=== PATIENT | male | born 1945 | race Caucasian/White ===

== ENCOUNTER 2018-06-14 18:57 | Emergency (ER) | payer MEDICARE ==
--- NOTE | 2018-06-14 19:52 | ERPHSYRPT ---
- History of Present Illness Time Seen by Provider: 06/14/18 19:44 Source: patient, family, EMS Exam Limitations: no limitations Patient Subjective Stated Complaint: Cough/congestion Triage Nursing Assessment: Patient ambulated into ED and transferred self to bed. Patient Alert with intermittent confusion. DX of alzheimers. at bedside answering questions. Patient has had a non-productive cough that has gotten worse since Tuesday. Patient's lungs noted to be diminished throughout with wheeze to left uppper lobe. O2 97% on room air. Patient denies pain or discomfort. Patient has been afebrile. Physician History: Patient is a 73-year-old male with a history of Alzheimer's dementia accompanied by his complaining that he has a worsening cough that is nonproductive for the last 3 days. After supper tonight, he told his he wanted to go to the ER to be evaluated and get antibiotics. He denies fever or chills, although his said he was shaking after supper. He denies shortness of breath. He denies any pain. His past medical history is significant for renal carcinoma with subsequent nephrectomy. The other kidney was diagnosed with renal carcinoma and he has declined treatment. His like a chest x-ray for him and antibiotics. Timing/Duration: day(s) (3), gradual onset, worse Cough Quality/Degree: moderate, dry cough Possible Cause: occasional episodes Modifying Factors: Improves With: coughing Associated Symptoms: cough, No shortness of breath, No wheezing Allergies/Adverse Reactions: naproxen [From Naprosyn] Adverse Reaction (Mild, Verified 06/14/18 19:33) Hx Influenza Vaccination/Date Given: No Hx Pneumococcal Vaccination/Date Given: No Immunizations Up to Date: Yes - Review of Systems Constitutional: No Fever, No Chills Eyes: No Symptoms Ears, Nose, & Throat: No Symptoms Respiratory: Cough Cardiac: No Chest Pain, No Edema, No Syncope Abdominal/Gastrointestinal: No Abdominal Pain, No Nausea, No Vomiting, No Diarrhea Genitourinary Symptoms: No Dysuria Musculoskeletal: No Back Pain, No Neck Pain Skin: No Rash Neurological: No Dizziness, No Focal Weakness, No Sensory Changes Psychological: No Symptoms Endocrine: No Symptoms Hematologic/Lymphatic: No Symptoms Immunological/Allergic: No Symptoms All Other Systems: Reviewed and Negative - Past Medical History Pertinent Past Medical History: Yes Neurological History: Alzheimer's Disease ENT History: No Pertinent History Cardiac History: High Cholesterol, Hypertension Respiratory History: No Pertinent History Endocrine Medical History: Diabetes Type II, Hypothyroidism Musculoskeletal History: No Pertinent History GI Medical History: No Pertinent History History: Kidney Cancer Psycho-Social History: No Pertinent History Male Reproductive Disorders: No Pertinent History Other Medical History: Kidney cancer 1998 - Past Surgical History Past Surgical History: Yes Gastrointestinal: Appendectomy, Cholecystectomy Genitourinary: Kidney Surgery Male Surgical History: Vasectomy Other Surgical History: nasal, tonsils, - Social History Smoking Status: Never smoker Exposure to second hand smoke: No Drug Use: none Patient Lives Alone: No - Nursing Vital Signs Nursing Vital Signs: Initial Vital Signs Temperature 99.8 F 06/14/18 19:23 Pulse Rate 107 H 06/14/18 19:23 Respiratory Rate 16 06/14/18 19:23 Blood Pressure 149/74 06/14/18 19:23 O2 Sat by Pulse Oximetry 97 06/14/18 19:23 Pain Scale Pain Intensity 0 - Physical Exam General Appearance: no apparent distress, alert Eye Exam: PERRL/EOMI, eyes nml inspection Ears, Nose, Throat Exam: normal ENT inspection, TMs normal, pharynx normal, moist mucous membranes Neck Exam: normal inspection, non-tender, supple, full range of motion Respiratory Exam: normal breath sounds, lungs clear, No respiratory distress Cardiovascular Exam: regular rate/rhythm, normal heart sounds Gastrointestinal/Abdomen Exam: soft, No tenderness Rectal Exam: not done Back Exam: normal inspection, No CVA tenderness, No vertebral tenderness Extremity Exam: normal inspection, normal range of motion Neurologic Exam: alert, oriented x 3, cooperative, normal mood/affect, sensation nml, No motor deficits Skin Exam: normal color, warm, dry, No rash Lymphatic Exam: No adenopathy SpO2 Interpretation: normal SpO2: 97 O2 Delivery: Room Air - Radiology Exams Chest X-ray Interpretation: Interpreted by me, Negative (stable 2V chest, comp 2V chest 07/15/15.) Ordered Tests: Active Orders 24 hr Category Date Time Status CHEST 2 VIEWS (PA AND LAT) Stat Exams 06/14/18 19:55 Ordered Peak Expiratory Flow Rate ONCE RT 06/14/18 20:07 Active Respiratory Nebulizer STAT RT 06/14/18 19:56 Active Respiratory Therapy Assessment DAILY RT 02/06/19 20:06 Active Medication Summary Discontinued Medications Generic Name Dose Route Start Last Admin Trade Name Jose PRN Reason Stop Dose Admin Albuterol Sulfate 2.5 mg 06/14/18 19:56 06/14/18 20:19 Proventil 2.5 Mg/3 Ml Neb IH 06/14/18 19:57 2.5 mg STAT ONE Administration Albuterol Sulfate Confirm 06/14/18 20:18 Proventil 2.5 Mg/3 Ml Neb Administered 06/14/18 20:19 Dose 2.5 mg IH .STK-MED ONE - Progress Progress: improved Air Movement: good Blood Culture(s) Obtained: No Antibiotics given: Yes Counseled pt/family regarding: diagnosis, rad results - Departure Time of Disposition: 20:29 Departure Disposition: Home Clinical Impression: Bronchitis Condition: Stable Critical Care Time: No Referrals: JESSI WADDELL MD [Primary Care Provider] - Additional Instructions: You have bronchitis. The x-ray did not show any signs of pneumonia at this time. You were given an albuterol breathing treatment. You were given Rocephin 1 g IM in the ER. Tomorrow continue with azithromycin 500 mg on day one, followed by 250 mg daily for days 2 through 5. Take Tylenol 1000 mg every 6-8 hours as needed. Follow-up with your primary medical doctor as needed. Prescriptions: Azithromycin 250 mg [Zithromax 250 MG TABLET] 250 mg PO ZPACK #6 tablet
[2018-06-14] MEDS ORDERED: PROVENTIL 2.5 MG/3 ML NEB IH ONE ×2 (19:56→20:18)
[2018-06-14] MEDS ORDERED: Rocephin 1000 MG INJ IM ONE (20:31)
[2018-06-14] MEDS ORDERED: XYLOCAINE 1% HCL 20 ML MDV ONE (20:37)
[2018-06-14] MEDS ORDERED: Rocephin 1000 MG INJ ONE (20:37)
[2018-06-14 21:07] VITALS: BP 110/87; PULSE 71; O2SAT 96
--- NOTE | 2018-06-15 08:35 | XRAY ---
Indication: Cough. Comparison: July 15, 2015. PA/lateral chest remains clear. Heart and mediastinal structures within normal limits. Bony thorax intact again with mild osteopenia and degenerative changes. Impression: Stable nonacute chest with chronic features.
== END 2018-06-14 21:08 | disposition home or self-care (01) ==
LOC: ED 18:57
DX: J40 Bronchitis, not specified as acute or chronic (principal); G30.9 Alzheimer's disease, unspecified; F02.80 Dementia in other diseases classified elsewhere, unspecified severity, without behavioral disturbance, psychotic disturbance, mood disturbance, and anxiety; E78.00 Pure hypercholesterolemia, unspecified; I10 Essential (primary) hypertension; E11.9 Type 2 diabetes mellitus without complications; E03.9 Hypothyroidism, unspecified; Z85.528 Personal history of other malignant neoplasm of kidney
CPT/HCPCS: 71046; 94150; 94640; 96372; 99284; J0696; J7609; A9270-GY

== ENCOUNTER 2018-07-20 19:39 | Observation (INO) | payer MEDICARE ==
[2018-07-20] MEDS ORDERED: Sodium Chloride 0.9% 1000 ML 1,000 ML IV STA (20:18)
[2018-07-20 20:41] LABS: Granulocyte Absolute (ANC) 5.49 (1.4-6.9); Hematocrit 42.9 % (42-50); Hemoglobin 14.7 gm/dl (12.5-18.0); Mean Corpuscular Hemoglobin 29.8 pg (26-32); Mean Corpuscular Hgb Concent. 34.3 g/dl (32-36); Mean Platelet Volume 10.6 fl (6-9.5); Platelet Count 295 K/mm3 (150-450); Red Blood Count 4.93 M/mm3 (4.1-5.6); Red Cell Distribution Width 15.1 % (11.5-14.0); White Blood Count 8.4 K/mm3 (4.0-10.5)
[2018-07-20] MEDS ORDERED: Sodium Chloride 0.9% 1000 ML 1,000 ML ONE ×2 (20:47→23:47)
[2018-07-20 20:55] LABS: ALBUMIN 4.3 g/dL (3.5-5.0); ANION GAP 17.2 MEQ/L (5-15); Calcium 9.2 mg/dL (8.4-10.2); Creatinine 1 1.29 mg/dL (0.66-1.25); Potassium 4.3 mmol/L (3.5-5.1); Total Protein 7.9 g/dL (6.3-8.2)
[2018-07-20 21:16] LABS: INFLUENZA A POSITIVE (NEGATIVE); INFLUENZA B NEGATIVE (NEGATIVE); RESPIRATORY SYNCTIAL VIRUS NEGATIVE (Negative)
[2018-07-20] MEDS ORDERED: Tamiflu 75MG Capsule PO ONE ×2 (21:17→21:32)
[2018-07-20] MEDS ORDERED: Zithromax 500 MG/ 250 ML NaCl Premix 500 MG/250 ML IVPB IV ONE ×2 (21:39→22:05)
[2018-07-20] MEDS ORDERED: DUONEB 0.5-3 MG/3 ml Neb IH ONE ×2 (21:40→21:45)
[2018-07-20 21:43] LABS: ATYPICAL LYMPHS 5 %; BAND 9 % (0.0-2.0); Basophil 1 % (0.0-1.0); Lymphocytes 9 % (24-44); Monocyte 15 % (0.0-12.0); Neutrophils 61 % (36.-66.); Platelet Estimate NORMAL (NORMAL); Total Cells Counted 100
--- NOTE | 2018-07-20 22:02 | ERPHSYRPT ---
- History of Present Illness Source: patient, family Exam Limitations: clinical condition Patient Subjective Stated Complaint: states that pt has been increasingly weak today iwth copugh since yesterday Triage Nursing Assessment: pt awake and alert, answers some questions- pt with hx of alzheimers. oriented to person and situation. skin warm and dry. pt transfer from wheelchair to stretcher with assist of 1. respirations nonlbored with lungs cta. Physician History: Pt with dementia, presented to the ED with his . Per , pt is usually ambulating well, and is able to answer some questions. Today the pt was so weak , he was not able to get out of bed, and had some fever. states, pt has a cough as well. Pt did not get the flu vaccine this year. Pt denies N/V/D or abdominal pain. He denies SOB. He can't give clear history. Timing/Duration: today Activities at Onset: none Severity of Dyspnea-Max: mild Possible Cause: no prior episodes Modifying Factors: Improves With: lying down Associated Symptoms: denies symptoms, cough, fever, wheezing Allergies/Adverse Reactions: naproxen [From Naprosyn] Adverse Reaction (Mild, Verified 07/20/18 19:55) Home Medications: Cyanocobalamin (Vitamin B-12) [Vitamin B12] 1,000 mcg PO DAILY 07/20/18 [History ] Donepezil HCl 10 mg [Aricept 10 MG] 10 mg PO DAILY 07/20/18 [History] Insulin Detemir [Levemir] 60 unit SQ BID 07/20/18 [History] Insulin Lispro [Humalog Kwikpen] 40 unit SQ BID 07/20/18 [History] Irbesartan/Hydrochlorothiazide [Irbesartan-Hctz 150-12.5 mg Tb] 1 each PO DAILY 07/20/18 [History] Levothyroxine Sodium 75 Mcg [Synthroid 75 Mcg] 75 mcg PO DAILY 07/20/18 [ History] Medroxyprogesterone Acet [Depo-Provera] 150 mg IM UD 07/20/18 [History] Memantine HCl 10 mg PO BID 07/20/18 [History] Potassium Chloride [K-Dur] 20 meq PO TID 07/20/18 [History] Vit B12/Levomefolate/Vit B6/B2 [Cerefolin Tablet] 1 each PO DAILY 07/20/18 [ History] Vitamin E 400 unit PO DAILY 07/20/18 [History] Hx Tetanus, Diphtheria Vaccination/Date Given: No Hx Influenza Vaccination/Date Given: No Hx Pneumococcal Vaccination/Date Given: No Immunizations Up to Date: No - Review of Systems Constitutional: Lethargy, Malaise Eyes: No Symptoms Ears, Nose, & Throat: No Symptoms Respiratory: Cough, Wheezing Cardiac: No Chest Pain, No Edema, No Syncope Abdominal/Gastrointestinal: No Abdominal Pain, No Nausea, No Vomiting, No Diarrhea Genitourinary Symptoms: No Dysuria Musculoskeletal: No Back Pain, No Neck Pain Neurological: No Dizziness, No Focal Weakness, No Sensory Changes - Past Medical History Pertinent Past Medical History: Yes Neurological History: Alzheimer's Disease ENT History: No Pertinent History Cardiac History: High Cholesterol, Hypertension Respiratory History: No Pertinent History Endocrine Medical History: Diabetes Type II, Hypothyroidism Musculoskeletal History: No Pertinent History GI Medical History: No Pertinent History History: Kidney Cancer Psycho-Social History: No Pertinent History Male Reproductive Disorders: No Pertinent History Other Medical History: Kidney cancer 1998 - Past Surgical History Past Surgical History: Yes Gastrointestinal: Appendectomy, Cholecystectomy Genitourinary: Kidney Surgery Male Surgical History: Vasectomy Other Surgical History: nasal, tonsils, - Social History Smoking Status: Never smoker Exposure to second hand smoke: No Drug Use: none Patient Lives Alone: No - Nursing Vital Signs Nursing Vital Signs: Initial Vital Signs Temperature 101 F 07/20/18 19:47 Pulse Rate 109 H 07/20/18 19:47 Respiratory Rate 18 07/20/18 19:47 Blood Pressure 115/77 07/20/18 19:47 O2 Sat by Pulse Oximetry 96 07/20/18 19:47 - Physical Exam General Appearance: mild distress Neck Exam: normal inspection, supple Respiratory Exam: wheezing Cardiovascular/Chest Exam: normal heart sounds, regular rate/rhythm Abdominal/Gastrointestinal Exam: soft, No tenderness, No distention, No mass Extremity Exam: non-tender, normal range of motion, normal inspection, no calf tenderness, no pedal edema Neurologic Exam: 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, 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, sensation nml, No motor deficits SpO2 Interpretation: borderline oxygenation SpO2: 96 - Course Nursing assessment & vital signs reviewed: Yes - Radiology Exams Chest X-ray Interpretation: Interpreted by me (RLL PNA.) Ordered Tests: Active Orders 24 hr Category Date Time Status EKG-ER Only STAT Care 07/20/18 20:18 Active IV Insertion STAT Care 07/20/18 20:18 Active CHEST 2 VIEWS (PA AND LAT) Stat Exams 07/20/18 20:21 Taken CBC W DIFF Stat Lab 07/20/18 20:35 Completed CMP Stat Lab 07/20/18 20:35 Completed Lactic Acid Stat Lab 07/20/18 20:27 Completed Manual Differential NC Stat Lab 07/20/18 20:35 Completed TROPONIN Q3H Lab 07/20/18 20:35 Completed TROPONIN Q3H Lab 07/20/18 23:30 Ordered Urinalysis with Microscopy Stat Lab 07/20/18 21:37 Ordered Respiratory Nebulizer STAT RT 07/20/18 21:41 Completed Medication Summary Generic Name Dose Route Start Last Admin Trade Name Freq PRN Reason Stop Dose Admin Azithromycin 500 mg in 250 mls @ 250 mls/hr 07/20/18 21:39 Zithromax 500 Mg/ 250 Ml Nacl Premix IV 07/20/18 22:38 STAT ONE Ceftriaxone Sodium/Dextrose 1 g in 50 mls @ 100 mls/hr 07/21/18 10:00 Rocephin 1 Gm-D5w 50 Ml Bag IV 08/20/18 09:59 [id number] JUSTIN Discontinued Medications Generic Name Dose Route Start Last Admin Trade Name Freq PRN Reason Stop Dose Admin Albuterol/Ipratropium 3 ml 07/20/18 21:40 07/20/18 21:47 Duoneb 0.5-3 Mg/3 Ml Neb IH 07/20/18 21:41 3 ml STAT ONE Administration Albuterol/Ipratropium Confirm 07/20/18 21:45 Duoneb 0.5-3 Mg/3 Ml Neb Administered 07/20/18 21:46 Dose 3 ml IH .STK-MED ONE Sodium Chloride 1,000 mls @ 999 mls/hr 07/20/18 20:18 07/20/18 20:49 Sodium Chloride 0.9% 1000 Ml IV 07/20/18 21:18 999 mls/hr .Q1H1M STA Administration Sodium Chloride Confirm 07/20/18 20:47 Sodium Chloride 0.9% 1000 Ml Administered 07/20/18 20:48 Dose 1,000 mls @ ud .ROUTE .K-MED ONE Oseltamivir Phosphate 75 mg 07/20/18 21:17 07/20/18 21:33 Tamiflu 75mg Capsule PO 07/20/18 21:18 75 mg STAT ONE Administration Oseltamivir Phosphate Confirm 07/20/18 21:32 Tamiflu 75mg Capsule Administered 07/20/18 21:33 Dose 75 mg PO .[facility] ONE Lab/Rad Data: Laboratory Result Diagrams 07/20/18 20:35 07/20/18 20:35 Laboratory Results 07/20/18 07/20/18 07/20/18 Range/Units 20:36 20:35 20:35 WBC (4.0-10.5) K/mm3 RBC (4.1-5.6) M/mm3 Hgb (12.5-18.0) gm/dl Hct (42-50) % MCV (78-100) fl MCH (26-32) pg MCHC (32-36) g/dl RDW (11.5-14.0) % Plt Count (150-450) K/mm3 MPV (6-9.5) fl Absolute Granulocytes (1.4-6.9) Segmented Neutrophils (36.-66.) % Band Neutrophils (0.0-2.0) % Lymphocytes (Manual) (24-44) % Monocytes (Manual) (0.0-12.0) % Basophils (Manual) (0.0-1.0) % Atypical Lymphocytes % Platelet Estimate (NORMAL) RBC Morphology Sodium 134 L (137-145) mmol/L Potassium 4.3 (3.5-5.1) mmol/L Chloride 103 (98-107) mmol/L Carbon Dioxide 19 L (22-30) mmol/L Anion Gap 17.2 H (5-15) MEQ/L BUN 23 H (9-20) mg/dL Creatinine 1.29 H (0.66-1.25) mg/dL Estimated GFR 58.2 ML/MIN Glucose 192 H (74-106) mg/dL Lactic Acid (0.4-2.0) Calcium 9.2 (8.4-10.2) mg/dL Total Bilirubin 1.00 (0.2-1.3) mg/dL AST 32 (17-59) U/L ALT 15 (0-50) U/L Alkaline Phosphatase 81 (38-126) U/L Troponin I < 0.012 (0.000-0.034) ng/mL Serum Total Protein 7.9 (6.3-8.2) g/dL Albumin 4.3 (3.5-5.0) g/dL Influenza Type A Ag POSITIVE (NEGATIVE) Influenza Type B Ag NEGATIVE (NEGATIVE) RSV (PCR) NEGATIVE (Negative) 07/20/18 07/20/18 Range/Units 20:35 20:27 WBC 8.4 (4.0-10.5) K/mm3 RBC 4.93 (4.1-5.6) M/mm3 Hgb 14.7 (12.5-18.0) gm/dl Hct 42.9 (42-50) % MCV 87.0 (78-100) fl MCH 29.8 (26-32) pg MCHC 34.3 (32-36) g/dl RDW 15.1 H (11.5-14.0) % Plt Count 295 (150-450) K/mm3 MPV 10.6 H (6-9.5) fl Absolute Granulocytes 5.49 (1.4-6.9) Segmented Neutrophils 61 (36.-66.) % Band Neutrophils 9 H (0.0-2.0) % Lymphocytes (Manual) 9 L (24-44) % Monocytes (Manual) 15 H (0.0-12.0) % Basophils (Manual) 1 (0.0-1.0) % Atypical Lymphocytes 5 % Platelet Estimate NORMAL (NORMAL) RBC Morphology NORMAL Sodium (137-145) mmol/L Potassium (3.5-5.1) mmol/L Chloride (98-107) mmol/L Carbon Dioxide (22-30) mmol/L Anion Gap (5-15) MEQ/L BUN (9-20) mg/dL Creatinine (0.66-1.25) mg/dL Estimated GFR ML/MIN Glucose (74-106) mg/dL Lactic Acid 1.6 (0.4-2.0) Calcium (8.4-10.2) mg/dL Total Bilirubin (0.2-1.3) mg/dL AST (17-59) U/L ALT (0-50) U/L Alkaline Phosphatase (38-126) U/L Troponin I (0.000-0.034) ng/mL Serum Total Protein (6.3-8.2) g/dL Albumin (3.5-5.0) g/dL Influenza Type A Ag (NEGATIVE) Influenza Type B Ag (NEGATIVE) RSV (PCR) (Negative) - Progress Progress: improved Air Movement: fair Progress Note: 07/20/18 22:10 Pt is a 73 y/o male with weakness, lethargy and wheeze. He had a flu positive tesr and CXR with RLL PNA. Pt also has ssome KEHINDE. He did get some IVF, Tamiflu , Duo nebs and Azithromycin with Ceftriaxone. I discussed the pt with Dr Waddell that accepted him for admission. Blood Culture(s) Obtained: No Antibiotics given: Yes Discussed with .: Gerald Counseled pt/family regarding: lab results, diagnosis, rad results - Departure Time of Disposition: 22:12 Departure Disposition: Observation Clinical Impression: Influenza A Condition: Stable Critical Care Time: No Referrals: JESSI WADDELL MD [Primary Care Provider] -
[2018-07-20 22:22] LABS: Appearance CLEAR (CLEAR); Bilirubin NEGATIVE (NEGATIVE); Blood NEGATIVE Ery/ul (0-5); Glucose 50 mg/dL (NEGATIVE); Ketones TRACE (NEGATIVE); Leukocyte Esterase NEGATIVE (NEGATIVE); Mucus SLIGHT /HPF (NEGATIVE); Nitrite NEGATIVE (NEGATIVE); Protein,Urine Dip 100 (Negative); Urobilinogen 2 mg/dL (0-1)
[2018-07-20] MEDS ORDERED: DUONEB 0.5-3 MG/3 ml Neb IH SCH (23:00)
[2018-07-20] MEDS ORDERED: Zithromax 500 MG/ 250 ML NaCl Premix 0 MG/0 ML IVPB IV ONE (23:03)
[2018-07-21] MEDS: DUONEB 0.5-3 MG/3 ml Neb IH SCH ×4 (00:38→18:55)
[2018-07-21 05:48] LABS: Hematocrit 38.1 % (42-50); Hemoglobin 12.9 gm/dl (12.5-18.0); Mean Cell Volume 87.8 fl (78-100); Mean Corpuscular Hemoglobin 29.7 pg (26-32); Mean Corpuscular Hgb Concent. 33.9 g/dl (32-36); Mean Platelet Volume 10.2 fl (6-9.5); Platelet Count 248 K/mm3 (150-450); Red Blood Count 4.34 M/mm3 (4.1-5.6); White Blood Count 5.2 K/mm3 (4.0-10.5)
[2018-07-21 06:08] LABS: ALBUMIN 3.5 g/dL (3.5-5.0); BILIRUBIN,TOTAL 0.6 mg/dL (0.2-1.3); Calcium 8.4 mg/dL (8.4-10.2); Creatinine 1 1.27 mg/dL (0.66-1.25); Potassium 3.9 mmol/L (3.5-5.1); Total Protein 6.7 g/dL (6.3-8.2)
--- NOTE | 2018-07-21 08:03 | PCM.HP ---
History of Present Illness - Chief Complaint Chief Complaint: Shortness of Breath History of Present Illness: is a 73 year old male with dementia who developed weakness suddenly with cough and fever. He started with a cough two days ago, yesterday had poor appetite and by the evening his could hardly get him up out of bed. He is resting comfortably at this time, no vomiting or diarrhea, no abdominal pain. - Review of Systems Constitutional: Fever, Chills Respiratory: Cough Cardiac: No Chest Pain, No Edema, No Syncope Abdominal/Gastrointestinal: No Abdominal Pain, No Nausea, No Vomiting, No Diarrhea Genitourinary Symptoms: No Dysuria Skin: No Rash All Other Systems: Reviewed and Negative Medications & Allergies Home Medications: Home Medication List Cyanocobalamin (Vitamin B-12) [Vitamin B12] 1,000 mcg PO DAILY 07/20/18 [ History Confirmed 07/20/18] Donepezil HCl 10 mg [Aricept 10 MG] 10 mg PO DAILY 07/20/18 [History Confirmed 07/20/18] Insulin Detemir [Levemir] 60 unit SQ BID 07/20/18 [History Confirmed 07/20/18] Insulin Lispro [Humalog Kwikpen] 40 unit SQ BID 07/20/18 [History Confirmed ] Irbesartan/Hydrochlorothiazide [Irbesartan-Hctz 150-12.5 mg Tb] 1 each PO DAILY 07/20/18 [History Confirmed 07/20/18] Levothyroxine Sodium 75 Mcg [Synthroid 75 Mcg] 75 mcg PO DAILY 07/20/18 [ History Confirmed 07/20/18] Medroxyprogesterone Acet [Depo-Provera] 150 mg IM UD 07/20/18 [History Confirmed 07/20/18] Memantine HCl 10 mg PO BID 07/20/18 [History Confirmed 07/20/18] Potassium Chloride [K-Dur] 20 meq PO TID 07/20/18 [History Confirmed 07/20/18] Vit B12/Levomefolate/Vit B6/B2 [Cerefolin Tablet] 1 each PO DAILY 07/20/18 [ History Confirmed 07/20/18] Vitamin E 400 unit PO DAILY 07/20/18 [History Confirmed 07/20/18] Allergies/Adverse Reactions: Allergies Allergy/AdvReac Type Severity Reaction Status Date / Time naproxen [From Naprosyn] AdvReac Mild Verified 07/20/18 19:55 - Past Medical History Past Medical History: Yes Neurological History: Alzheimer's Disease ENT History: No Pertinent History Cardiac History: High Cholesterol, Hypertension Respiratory History: No Pertinent History Endocrine Medical History: Diabetes Type II, Hypothyroidism Musculoskelatal History: No Pertinent History GI Medical History: No Pertinent History History: Kidney Cancer Pyscho-Social History: No Pertinent History Male Reproductive Disorders: No Pertinent History Comment: Kidney cancer 1998 rt kidney removed - Past Surgical History Past Surgical History: Yes Neuro Surgical History: No Pertinent History Cardiac History: No Pertinent History Respiratory Surgery: No Pertinent History GI Surgical History: Appendectomy, Cholecystectomy Genitourinary Surgical Hx: Kidney Surgery Musculskeletal Surgical Hx: No Pertinent History Male Surgical History: Vasectomy Other Surgical History: nasal, tonsils, (2013)kidney CA back on left kidney refused tx - Social History Smoking Status: Never smoker Exposure to second hand smoke: No Alcohol: None Drug Use: none - Physical Exam Vital Signs: Vital Signs - 24 hr Temp Pulse Resp BP Pulse Ox 07/21/18 06:51 93 H 22 95 07/21/18 03:56 98.8 F 108 H 18 129/59 94 L 07/21/18 00:57 94 L 07/21/18 00:39 97 H 20 07/21/18 00:04 99.0 F 101 H 16 130/67 97 07/20/18 22:40 101 H 18 97 07/20/18 22:13 96 07/20/18 19:47 101 F 109 H 18 115/77 96 General Appearance: no apparent distress, alert Neurologic Exam: alert, oriented x 3, cooperative, normal mood/affect, nml cerebellar function, sensation nml, No motor deficits, No sensory deficit Respiratory Exam: rhonchi Cardiovascular Exam: regular rate/rhythm, normal heart sounds, normal peripheral pulses Gastrointestinal/Abdomen Exam: soft, normal bowel sounds, No tenderness, No mass Extremity Exam: normal inspection, normal range of motion, pelvis stable Results - Labs Lab/Micro Results: Lab Results-Last 24 Hours 07/20/18 07/20/18 07/20/18 Range/Units 20:27 20:35 20:35 WBC 8.4 (4.0-10.5) K/mm3 RBC 4.93 (4.1-5.6) M/mm3 Hgb 14.7 (12.5-18.0) gm/dl Hct 42.9 (42-50) % MCV 87.0 (78-100) fl MCH 29.8 (26-32) pg MCHC 34.3 (32-36) g/dl RDW 15.1 H (11.5-14.0) % Plt Count 295 (150-450) K/mm3 MPV 10.6 H (6-9.5) fl Absolute Granulocytes 5.49 (1.4-6.9) Segmented Neutrophils 61 (36.-66.) % Band Neutrophils 9 H (0.0-2.0) % Lymphocytes (Manual) 9 L (24-44) % Monocytes (Manual) 15 H (0.0-12.0) % Basophils (Manual) 1 (0.0-1.0) % Atypical Lymphocytes 5 % Platelet Estimate NORMAL (NORMAL) RBC Morphology NORMAL Sodium 134 L (137-145) mmol/L Potassium 4.3 (3.5-5.1) mmol/L Chloride 103 (98-107) mmol/L Carbon Dioxide 19 L (22-30) mmol/L Anion Gap 17.2 H (5-15) MEQ/L BUN 23 H (9-20) mg/dL Creatinine 1.29 H (0.66-1.25) mg/dL Estimated GFR 58.2 ML/MIN Glucose 192 H (74-106) mg/dL Lactic Acid 1.6 (0.4-2.0) Calcium 9.2 (8.4-10.2) mg/dL Total Bilirubin 1.00 (0.2-1.3) mg/dL AST 32 (17-59) U/L ALT 15 (0-50) U/L Alkaline Phosphatase 81 (38-126) U/L Troponin I (0.000-0.034) ng/mL Serum Total Protein 7.9 (6.3-8.2) g/dL Albumin 4.3 (3.5-5.0) g/dL Urine Color (YELLOW) Urine Appearance (CLEAR) Urine pH (5-6) Ur Specific [place] (1.005-1.025) Urine Protein (Negative) Urine Ketones (NEGATIVE) Urine Blood (0-5) Pepe/ul Urine Nitrite (NEGATIVE) Urine Bilirubin (NEGATIVE) Urine Urobilinogen (0-1) mg/dL Ur Leukocyte Esterase (NEGATIVE) Urine WBC (Auto) (0-5) /HPF Urine RBC (Auto) (0-2) /HPF U Epithel Cells (Auto) (FEW) /HPF Urine Bacteria (Auto) (NEGATIVE) /HPF Urine Mucus (Auto) (NEGATIVE) /HPF Urine Glucose (NEGATIVE) mg/dL Influenza Type A Ag (NEGATIVE) Influenza Type B Ag (NEGATIVE) RSV (PCR) (Negative) 07/20/18 07/20/18 07/20/18 Range/Units 20:35 20:36 21:37 WBC (4.0-10.5) K/mm3 RBC (4.1-5.6) M/mm3 Hgb (12.5-18.0) gm/dl Hct (42-50) % MCV (78-100) fl MCH (26-32) pg MCHC (32-36) g/dl RDW (11.5-14.0) % Plt Count (150-450) K/mm3 MPV (6-9.5) fl Absolute Granulocytes (1.4-6.9) Segmented Neutrophils (36.-66.) % Band Neutrophils (0.0-2.0) % Lymphocytes (Manual) (24-44) % Monocytes (Manual) (0.0-12.0) % Basophils (Manual) (0.0-1.0) % Atypical Lymphocytes % Platelet Estimate (NORMAL) RBC Morphology Sodium (137-145) mmol/L Potassium (3.5-5.1) mmol/L Chloride (98-107) mmol/L Carbon Dioxide (22-30) mmol/L Anion Gap (5-15) MEQ/L BUN (9-20) mg/dL Creatinine (0.66-1.25) mg/dL Estimated GFR ML/MIN Glucose (74-106) mg/dL Lactic Acid (0.4-2.0) Calcium (8.4-10.2) mg/dL Total Bilirubin (0.2-1.3) mg/dL AST (17-59) U/L ALT (0-50) U/L Alkaline Phosphatase (38-126) U/L Troponin I < 0.012 (0.000-0.034) ng/mL Serum Total Protein (6.3-8.2) g/dL Albumin (3.5-5.0) g/dL Urine Color YELLOW (YELLOW) Urine Appearance CLEAR (CLEAR) Urine pH 5.0 (5-6) Ur Specific [place] 1.020 (1.005-1.025) Urine Protein 100 (Negative) Urine Ketones TRACE (NEGATIVE) Urine Blood NEGATIVE (0-5) Pepe/ul Urine Nitrite NEGATIVE (NEGATIVE) Urine Bilirubin NEGATIVE (NEGATIVE) Urine Urobilinogen 2 (0-1) mg/dL Ur Leukocyte Esterase NEGATIVE (NEGATIVE) Urine WBC (Auto) 3-5 (0-5) /HPF Urine RBC (Auto) NONE (0-2) /HPF U Epithel Cells (Auto) NONE (FEW) /HPF Urine Bacteria (Auto) NONE (NEGATIVE) /HPF Urine Mucus (Auto) SLIGHT (NEGATIVE) /HPF Urine Glucose 50 (NEGATIVE) mg/dL Influenza Type A Ag POSITIVE (NEGATIVE) Influenza Type B Ag NEGATIVE (NEGATIVE) RSV (PCR) NEGATIVE (Negative) 07/20/18 07/21/18 07/21/18 Range/Units 23:32 05:19 05:19 WBC 5.2 (4.0-10.5) K/mm3 RBC 4.34 (4.1-5.6) M/mm3 Hgb 12.9 (12.5-18.0) gm/dl Hct 38.1 L (42-50) % MCV 87.8 (78-100) fl MCH 29.7 (26-32) pg MCHC 33.9 (32-36) g/dl RDW 15.0 H (11.5-14.0) % Plt Count 248 (150-450) K/mm3 MPV 10.2 H (6-9.5) fl Absolute Granulocytes (1.4-6.9) Segmented Neutrophils (36.-66.) % Band Neutrophils (0.0-2.0) % Lymphocytes (Manual) (24-44) % Monocytes (Manual) (0.0-12.0) % Basophils (Manual) (0.0-1.0) % Atypical Lymphocytes % Platelet Estimate (NORMAL) RBC Morphology Sodium 134 L (137-145) mmol/L Potassium 3.9 (3.5-5.1) mmol/L Chloride 104 (98-107) mmol/L Carbon Dioxide 20 L (22-30) mmol/L Anion Gap 14.0 (5-15) MEQ/L BUN 19 (9-20) mg/dL Creatinine 1.27 H (0.66-1.25) mg/dL Estimated GFR 59.2 ML/MIN Glucose 201 H (74-106) mg/dL Lactic Acid (0.4-2.0) Calcium 8.4 (8.4-10.2) mg/dL Total Bilirubin 0.60 (0.2-1.3) mg/dL AST 18 (17-59) U/L ALT 14 (0-50) U/L Alkaline Phosphatase 66 (38-126) U/L Troponin I < 0.012 (0.000-0.034) ng/mL Serum Total Protein 6.7 (6.3-8.2) g/dL Albumin 3.5 (3.5-5.0) g/dL Urine Color (YELLOW) Urine Appearance (CLEAR) Urine pH (5-6) Ur Specific [place] (1.005-1.025) Urine Protein (Negative) Urine Ketones (NEGATIVE) Urine Blood (0-5) Pepe/ul Urine Nitrite (NEGATIVE) Urine Bilirubin (NEGATIVE) Urine Urobilinogen (0-1) mg/dL Ur Leukocyte Esterase (NEGATIVE) Urine WBC (Auto) (0-5) /HPF Urine RBC (Auto) (0-2) /HPF U Epithel Cells (Auto) (FEW) /HPF Urine Bacteria (Auto) (NEGATIVE) /HPF Urine Mucus (Auto) (NEGATIVE) /HPF Urine Glucose (NEGATIVE) mg/dL Influenza Type A Ag (NEGATIVE) Influenza Type B Ag (NEGATIVE) RSV (PCR) (Negative) - Radiology Impressions Radiology Exams & Impressions: Radiology Procedures Category Date Time Status CHEST 2 VIEWS (PA AND LAT) Stat Exams 07/20/18 20:21 Taken - Other Procedures and Tests Respiratory Therapy 07/20/18 22:13 Oxygen Nasal Cannula 2 lpm 07/20/18 22:39 Respiratory Therapy Assessment DAILY 07/21/18 00:11 Peak Expiratory Flow Rate ONCE Assessment/Plan (1) Influenza A Current Visit: Yes Status: Acute Assessment & Plan: continue IV fluids and tamiflu at this time. some question of pneumonia in ER, I reviewed chest xray and do not see any obvious infiltrate, if negative will d/ c antibiotics. had normal wbc and I feel his current symptoms are explained by the flu. Code(s): J10.1 - FLU DUE TO OTH IDENT INFLUENZA VIRUS W OTH RESP MANIFEST (2) Diabetes mellitus Current Visit: Yes Status: Acute Code(s): E11.9 - TYPE 2 DIABETES MELLITUS WITHOUT COMPLICATIONS (3) Dementia Current Visit: Yes Status: Acute Code(s): F03.90 - UNSPECIFIED DEMENTIA WITHOUT BEHAVIORAL DISTURBANCE (4) Weakness Current Visit: Yes Status: Acute Code(s): R53.1 - WEAKNESS
--- NOTE | 2018-07-21 08:50 | XRAY ---
Indication: Weakness. Comparison: June 14, 2018. PA/lateral chest remains clear. Heart and mediastinal structures within normal limits. No new/acute findings.
[2018-07-21] MEDS ORDERED: NON-FORMULARY ITEM (Insulin Detemir [Levemir] 60 UNIT) SQ SCH (10:00)
[2018-07-21] MEDS ORDERED: B2 PO SCH (10:00)
[2018-07-21] MEDS ORDERED: [UNRECOGNIZED DRUG - OTHER] PO SCH (10:00)
[2018-07-21] MEDS ORDERED: NON-FORMULARY ITEM (Potassium Chloride [K-Dur] 20 MEQ) PO SCH (10:00)
[2018-07-21] MEDS ORDERED: HYDROCHLOROTHIAZIDE PO SCH (10:00)
[2018-07-21] MEDS ORDERED: VIT B6 PO SCH (10:00)
[2018-07-21] MEDS ORDERED: VIT B12 PO SCH (10:00)
[2018-07-21] MEDS ORDERED: ROCEPHIN 1 Gm-D5w 50 ml Bag** 1 G/50 ML IVPB IV SCH ×2 (10:00→22:00)
[2018-07-21] MEDS ORDERED: IRBESARTAN PO SCH (10:00)
[2018-07-21] MEDS ORDERED: NON-FORMULARY ITEM (Memantine Hcl [Memantine Hcl] 10 MG) PO SCH (10:00)
[2018-07-21] MEDS ORDERED: NON-FORMULARY ITEM (Cyanocobalamin (Vitamin B-12) [Vitamin B12] 1,000 MCG) PO SCH (10:00)
[2018-07-21] MEDS ORDERED: LEVOMEFOLATE PO SCH (10:00)
[2018-07-21] MEDS: ENOXAPARIN SODIUM SQ SCH (10:19)
[2018-07-21] MEDS: Lantus Insulin SQ SCH ×2 (10:20→21:46)
[2018-07-21] MEDS: Vitamin B-12 500 MCG PO SCH (10:20)
[2018-07-21] MEDS: Aricept 10 MG PO SCH (10:21)
[2018-07-21] MEDS: SYNTHROID 75 MCG PO SCH (10:21)
[2018-07-21] MEDS: Tamiflu 75MG Capsule PO SCH ×2 (10:21→21:46)
[2018-07-21] MEDS: Avapro 150 MG PO SCH (10:21)
[2018-07-21] MEDS: Klor Con 10 MEQ PO SCH ×3 (10:22→21:46)
[2018-07-21] MEDS: hydroDIURIL 25 MG PO SCH (10:23)
[2018-07-21] MEDS: FOLTX (FOLBIC) PO SCH (10:24)
[2018-07-21] MEDS: Namenda 5 MG PO SCH ×2 (10:24→21:46)
[2018-07-21] MEDS: Vitamin E 400 UNIT SOFTGEL PO SCH (10:24)
[2018-07-21] MEDS ORDERED: Zithromax 500 MG/ 250 ML NaCl Premix 500 MG/250 ML IVPB IV SCH (22:00)
[2018-07-21] MEDS: NovoLOG Insulin SQ PRN (22:50)
[2018-07-22] MEDS: DUONEB 0.5-3 MG/3 ml Neb IH SCH ×3 (00:50→13:33)
[2018-07-22 06:04] LABS: BASOPHIL % 0.1 % (0.0-0.4); Basophil (Absolute #) 0.01 (0-0.4); Eosinophil % 0.4 % (0.00-5.0); Eosinophil (Absolute #) 0.03 (0-0.5); Granulocyte Absolute (ANC) 5.06 (1.4-6.9); Granulocytes % 67.9 % (36.0-66.0); Hematocrit 38.2 % (42-50); Hemoglobin 13.2 gm/dl (12.5-18.0); Lymphocyte (Absolute #) 1.25 (1.0-4.6); Lymphocytes % 16.8 % (24.0-44.0); Mean Corpuscular Hemoglobin 30.1 pg (26-32); Mean Corpuscular Hgb Concent. 34.6 g/dl (32-36); Mean Platelet Volume 10.2 fl (6-9.5); Monocytes % 14.8 % (0.0-12.0); Platelet Count 274 K/mm3 (150-450); Red Blood Count 4.39 M/mm3 (4.1-5.6); Red Cell Distribution Width 14.9 % (11.5-14.0); White Blood Count 7.5 K/mm3 (4.0-10.5)
[2018-07-22 06:23] LABS: ALBUMIN 3.7 g/dL (3.5-5.0); ANION GAP 13.5 MEQ/L (5-15); BILIRUBIN,TOTAL 0.7 mg/dL (0.2-1.3); Calcium 8.6 mg/dL (8.4-10.2); Creatinine 1 1.27 mg/dL (0.66-1.25); Potassium 4.2 mmol/L (3.5-5.1)
[2018-07-22] MEDS: NovoLOG Insulin SQ PRN ×2 (08:36→13:39)
[2018-07-22 08:41] VITALS: O2SAT 96
[2018-07-22] MEDS: ENOXAPARIN SODIUM SQ SCH (10:27)
[2018-07-22] MEDS: Aricept 10 MG PO SCH (10:27)
[2018-07-22] MEDS: FOLTX (FOLBIC) PO SCH (10:27)
[2018-07-22] MEDS: Avapro 150 MG PO SCH (10:27)
[2018-07-22] MEDS: hydroDIURIL 25 MG PO SCH (10:28)
[2018-07-22] MEDS: Namenda 5 MG PO SCH (10:29)
[2018-07-22] MEDS: Klor Con 10 MEQ PO SCH (10:29)
[2018-07-22] MEDS: Vitamin B-12 500 MCG PO SCH (10:29)
[2018-07-22] MEDS: SYNTHROID 75 MCG PO SCH (10:29)
[2018-07-22] MEDS: Lantus Insulin SQ SCH (10:30)
[2018-07-22] MEDS: Tamiflu 75MG Capsule PO SCH (10:30)
[2018-07-22] MEDS: Vitamin E 400 UNIT SOFTGEL PO SCH (10:30)
--- NOTE | 2018-07-22 13:37 | PCM.DS ---
Discharge Summary Date of Admission: 07/20/18 23:28 Admitting Physician: JESSI WADDELL Primary Care Provider: JESSI WADDELL Allergies Allergies naproxen [From Naprosyn] Adverse Reaction (Mild, Verified 07/20/18 19:55) Hospital Summary - Hospital Course Hospital Course: Pt is 73 yo male pt of Dr. Waddell' with dementia who was admitted through ER with weakness and positive influenza A. Started on tamiflu and duonebs. He has improved steadily since then. Per he is getting up and going to the bathroom by himself. He is tolerating po. She is comfortable taking him home today. Will discharge to home with tamiflu and an albuterol inhaler as there are some faint wheezes on exam today. - Vitals & Intake/Output Vital Signs: Vital Signs Temperature 98.8 F 07/22/18 08:00 Pulse Rate 99 H 07/22/18 08:00 Respiratory Rate 20 07/22/18 08:00 Blood Pressure 134/62 07/22/18 08:00 O2 Sat by Pulse Oximetry 96 07/22/18 08:00 Intake & Output: Intake & Output 07/20/18 07/21/18 07/22/18 07/23/18 11:59 11:59 11:59 11:59 Intake Total 0 4282 Output Total 500 175 Balance -500 4107 Weight 89.2 kg 87.9 kg - Lab Result Diagrams: 07/22/18 05:35 07/22/18 05:35 Lab Results-Last 24 Hrs: Accuchecks Date 07/22/18 Date 07/21/18 Time 07:30 Time 16:30 Accucheck Value: 212 Accucheck Value: 336 Accucheck Value: 355 Lab Results-Last 24 Hours 07/22/18 07/22/18 Range/Units 05:35 05:35 WBC 7.5 (4.0-10.5) K/mm3 RBC 4.39 (4.1-5.6) M/mm3 Hgb 13.2 (12.5-18.0) gm/dl Hct 38.2 L (42-50) % MCV 87.0 (78-100) fl MCH 30.1 (26-32) pg MCHC 34.6 (32-36) g/dl RDW 14.9 H (11.5-14.0) % Plt Count 274 (150-450) K/mm3 MPV 10.2 H (6-9.5) fl Gran % 67.9 H (36.0-66.0) % Eos # (Auto) 0.03 (0-0.5) Absolute Lymphs (auto) 1.25 (1.0-4.6) Absolute Monos (auto) 1.10 (0.0-1.3) Lymphocytes % 16.8 L (24.0-44.0) % Monocytes % 14.8 H (0.0-12.0) % Eosinophils % 0.4 (0.00-5.0) % Basophils % 0.1 (0.0-0.4) % Absolute Granulocytes 5.06 (1.4-6.9) Basophils # 0.01 (0-0.4) Sodium 135 L (137-145) mmol/L Potassium 4.2 (3.5-5.1) mmol/L Chloride 106 (98-107) mmol/L Carbon Dioxide 20 L (22-30) mmol/L Anion Gap 13.5 (5-15) MEQ/L BUN 18 (9-20) mg/dL Creatinine 1.27 H (0.66-1.25) mg/dL Estimated GFR 59.2 ML/MIN Glucose 245 H (74-106) mg/dL Calcium 8.6 (8.4-10.2) mg/dL Total Bilirubin 0.70 (0.2-1.3) mg/dL AST 16 L (17-59) U/L ALT 15 (0-50) U/L Alkaline Phosphatase 89 (38-126) U/L Serum Total Protein 7.0 (6.3-8.2) g/dL Albumin 3.7 (3.5-5.0) g/dL Micro Results-Entire Visit: Accuchecks Date 07/22/18 Date 07/21/18 Time 07:30 Time 16:30 Accucheck Value: 212 Accucheck Value: 336 Accucheck Value: 355 - Radiology Exams Ordered Rad Exams-Entire Visit: Radiology Procedures Category Date Time Status CHEST 2 VIEWS (PA AND LAT) Stat Exams 07/20/18 20:21 Completed - Procedures and Test Procedures and Tests throughout Hospitalization: Therapy Orders & Screens 07/20/18 21:41 Respiratory Nebulizer STAT Comment: Diagnosis: Shortness of Breath 07/20/18 22:13 Oxygen Nasal Cannula 2 lpm Comment: Diagnosis: Shortness of Breath Respiratory Therapy Consult ROUTINE Comment: Reason For Exam: Diagnosis: Shortness of Breath 07/20/18 22:39 Respiratory Therapy Assessment DAILY Comment: Diagnosis: Shortness of Breath 07/21/18 00:11 Peak Expiratory Flow Rate ONCE Comment: Reason For Exam: Diagnosis: Shortness of Breath 07/21/18 00:59 RT Screen per Nursing Assess ONCE Comment: Protocol Order Physician Instructions: Greater than 3 points order RT Admission Screen Reason For Exam: Triggered on Admission Diagnosis: Shortness of Breath Diagnosis: Shortness of Breath Pneumonia: Yes Home O2: No Asthma: No CHF: No Home CPAP/BIPAP: Yes Home Nebs/MDI: No Total Points: 8 Discharge Exam General Appearance: no apparent distress, alert Neurologic Exam: cooperative, disoriented Skin Exam: normal color, warm, dry, No rash Respiratory Exam: normal breath sounds, wheezing (scattered, faint), No crackles /rales, No rhonchi Cardiovascular Exam: regular rate/rhythm, normal heart sounds, No murmur Gastrointestinal/Abdomen Exam: soft, normal bowel sounds, distention, No tenderness, No mass, No guarding, No rebound Extremity Exam: normal inspection, No pedal edema, No swelling Back Exam: normal inspection, No rash Final Diagnosis/Problem List - Final Discharge Diagnosis/Problem (1) Influenza A Current Visit: Yes Status: Acute Assessment & Plan: Much improved. Home on inhaler. (2) Weakness Current Visit: Yes Status: Resolved (3) Dementia Current Visit: Yes Status: Chronic (4) Diabetes mellitus Current Visit: Yes Status: Chronic - Discharge Disposition: Home, Self-Care Condition: Stable Prescriptions: New Albuterol Sulfate [Albuterol Sulfate Hfa] 8.5 gm IH QIDPRN PRN #1 [id number] PRN Reason: Shortness Of Breath/Wheezing Oseltamivir 75 mg [Tamiflu 75MG Capsule] 75 mg PO BID #6 cap Continue Memantine HCl 10 mg PO BID Insulin Lispro [Humalog Kwikpen U-100] 40 unit SQ BID Insulin Detemir [Levemir] 60 unit SQ BID Medroxyprogesterone Acet [Depo-Provera] 150 mg IM UD Vitamin E 400 unit PO DAILY Cyanocobalamin (Vitamin B-12) [Vitamin B12] 1,000 mcg PO DAILY Vit B12/Levomefolate/Vit B6/B2 [Cerefolin Caplet] 1 each PO DAILY Levothyroxine Sodium 75 Mcg [Synthroid 75 Mcg] 75 mcg PO DAILY Irbesartan/Hydrochlorothiazide [Irbesartan-Hctz 150-12.5 mg Tb] 1 each PO DAILY Donepezil HCl 10 mg [Aricept 10 MG] 10 mg PO DAILY Potassium Chloride [K-Dur] 20 meq PO TID Follow up with: JESSI WDADELL MD [Primary Care Provider] - 1 Week
[2018-07-22 13:39] VITALS: PULSE 90
[2018-07-22 14:07] VITALS: BP 131/75
== END 2018-07-22 14:22 | disposition home or self-care (01) ==
LOC: ED 19:39 → MED SURG 23:28
PROVIDERS: ADMIT Family Medicine; ATTEND Family Medicine
DX: J09.X2 Influenza due to identified novel influenza A virus with other respiratory manifestations (principal); R53.1 Weakness; F03.90 Unspecified dementia, unspecified severity, without behavioral disturbance, psychotic disturbance, mood disturbance, and anxiety; E11.9 Type 2 diabetes mellitus without complications; Z79.899 Other long term (current) drug therapy; I10 Essential (primary) hypertension; E03.9 Hypothyroidism, unspecified; Z79.4 Long term (current) use of insulin
CPT/HCPCS: 36000; 36415; 71046; 80053; 81001; 82962; 83605; 84484; 85025; 85027; 87631; 93005; 93268; 94150; 94640; 94760; 96360; 96365; 96367; 96374; 96375; 99285; J0456; J0696; J1650; A9270-GY; G0378

== ENCOUNTER 2019-04-30 16:52 | Inpatient (IN) | payer MEDICARE ==
--- NOTE | 2019-04-30 16:56 | ERPHSYRPT ---
- History of Present Illness Time Seen by Provider: 04/30/19 16:56 Source: patient, family Exam Limitations: clinical condition Physician History: 74 y/o diabetic white male with alzheimers dz presents from home for increased confusion and weakness. pt was found on ground this am and denies pain anywhere. pt has been eating and drinking normally until today. pt has one kidney that remains and it has a slow growing cancer on it. pt lives with his elderly spouse. no n/v/d. Timing/Duration: today Severity: mild Associated Symptoms: weakness, other (increased confusion) Allergies/Adverse Reactions: naproxen [From Naprosyn] Adverse Reaction (Mild, Verified 04/30/19 17:03) Home Medications: Cyanocobalamin (Vitamin B-12) [Vitamin B12] 1,000 mcg PO DAILY 07/20/18 [History ] Donepezil HCl 10 mg [Aricept 10 MG] 10 mg PO DAILY 07/20/18 [History] Insulin Detemir [Levemir] 60 unit SQ BID 07/20/18 [History] Insulin Lispro [Humalog Kwikpen U-100] 40 unit SQ BID 07/20/18 [History] Irbesartan/Hydrochlorothiazide [Irbesartan-Hctz 150-12.5 mg Tb] 1 each PO DAILY 07/20/18 [History] Levothyroxine Sodium 75 Mcg [Synthroid 75 Mcg] 75 mcg PO DAILY 07/20/18 [ History] Medroxyprogesterone Acet [Depo-Provera] 150 mg IM UD 07/20/18 [History] Memantine HCl 10 mg PO BID 07/20/18 [History] Potassium Chloride [K-Dur] 20 meq PO TID 07/20/18 [History] Vit B12/Levomefolate/Vit B6/B2 [Cerefolin Caplet] 1 each PO DAILY 07/20/18 [ History] Vitamin E 400 unit PO DAILY 07/20/18 [History] Hx Tetanus, Diphtheria Vaccination/Date Given: No Hx Influenza Vaccination/Date Given: No Hx Pneumococcal Vaccination/Date Given: No - Review of Systems Constitutional: Weakness Eyes: No Symptoms Ears, Nose, & Throat: No Symptoms Respiratory: No Symptoms Cardiac: No Symptoms Abdominal/Gastrointestinal: No Symptoms Genitourinary Symptoms: No Symptoms Musculoskeletal: No Symptoms Skin: No Symptoms Neurological: Other (increased confusion) Psychological: No Symptoms Endocrine: No Symptoms Hematologic/Lymphatic: No Symptoms Immunological/Allergic: No Symptoms All Other Systems: Reviewed and Negative - Past Medical History Pertinent Past Medical History: Yes Neurological History: Alzheimer's Disease ENT History: No Pertinent History Cardiac History: High Cholesterol, Hypertension Respiratory History: No Pertinent History Endocrine Medical History: Diabetes Type II, Hypothyroidism Musculoskeletal History: No Pertinent History GI Medical History: No Pertinent History History: Kidney Cancer Psycho-Social History: No Pertinent History Male Reproductive Disorders: No Pertinent History Other Medical History: Kidney cancer 1998 rt kidney removed - Past Surgical History Past Surgical History: Yes Neuro Surgical History: No Pertinent History Cardiac: No Pertinent History Respiratory: No Pertinent History Gastrointestinal: Appendectomy, Cholecystectomy Genitourinary: Kidney Surgery Musculoskeletal: No Pertinent History Male Surgical History: Vasectomy Other Surgical History: nasal, tonsils, (2013)kidney CA back on left kidney refused tx - Social History Smoking Status: Never smoker Exposure to second hand smoke: No Drug Use: none Patient Lives Alone: No - Nursing Vital Signs Nursing Vital Signs: Initial Vital Signs Temperature 97.1 F 04/30/19 16:53 Pulse Rate 92 H 04/30/19 16:53 Respiratory Rate 18 04/30/19 16:53 Blood Pressure 135/86 04/30/19 16:53 O2 Sat by Pulse Oximetry 97 04/30/19 16:53 Pain Scale Pain Intensity 0 - Physical Exam General Appearance: no apparent distress, alert, obese Eye Exam: PERRL/EOMI, eyes nml inspection Ears, Nose, Throat Exam: normal ENT inspection, moist mucous membranes Neck Exam: normal inspection, non-tender, supple, full range of motion Respiratory Exam: normal breath sounds, lungs clear, airway intact, No chest tenderness, No respiratory distress Cardiovascular Exam: regular rate/rhythm, normal heart sounds, normal peripheral pulses Gastrointestinal/Abdomen Exam: soft, normal bowel sounds, No tenderness Rectal Exam: not done Back Exam: normal inspection, normal range of motion, No CVA tenderness, No vertebral tenderness Extremity Exam: normal inspection, normal range of motion, pelvis stable Neurologic Exam: alert, cooperative, digital forensic analyst II-XII nml as tested, normal mood/ affect, sensation nml, other (pt is alert to self, spouse and location) Skin Exam: normal color, warm, dry Lymphatic Exam: No adenopathy SpO2 Interpretation: normal O2 Delivery: Room Air - Course Nursing assessment & vital signs reviewed: Yes Ordered Tests: Active Orders 24 hr Category Date Time Status IV Insertion STAT Care 04/30/19 17:39 Active HEAD WITHOUT CONTRAST [CT] Stat Exams 04/30/19 18:24 Taken AMYLASE Stat Lab 04/30/19 17:58 Completed CBC W DIFF Stat Lab 04/30/19 17:58 Completed CMP Stat Lab 04/30/19 17:58 Completed CULTURE,URINE Stat Lab 04/30/19 18:00 Received LIPASE Stat Lab 04/30/19 17:58 Completed Lactic Acid Stat Lab 04/30/19 18:09 Completed Lactic Acid Stat Lab 04/30/19 21:05 Completed UA W/RFX UR CULTURE Stat Lab 04/30/19 18:00 Completed Transfer Order Routine Transfer 04/30/19 Ordered Medication Summary Discontinued Medications Generic Name Dose Route Start Last Admin Trade Name Freq PRN Reason Stop Dose Admin Sodium Chloride 1,000 mls @ 999 mls/hr 04/30/19 17:39 04/30/19 18:48 Sodium Chloride 0.9% 1000 Ml IV 04/30/19 18:39 Infused .Q1H1M STA Infusion Sodium Chloride Confirm 04/30/19 17:45 Sodium Chloride 0.9% 1000 Ml Administered 04/30/19 17:46 Dose 1,000 mls @ ud .ROUTE .STK-MED ONE Ondansetron HCl 4 mg 04/30/19 17:39 04/30/19 17:47 Zofran 4 Mg/2 Ml Vial IV 04/30/19 17:40 Not Given STAT ONE Lab/Rad Data: Laboratory Result Diagrams 04/30/19 17:58 04/30/19 17:58 Laboratory Results 04/30/19 04/30/19 04/30/19 Range/Units 21:05 18:09 18:00 WBC (4.0-10.5) K/mm3 RBC (4.1-5.6) M/mm3 Hgb (12.5-18.0) gm/dl Hct (42-50) % MCV (78-100) fl MCH (26-32) pg MCHC (32-36) g/dl RDW (11.5-14.0) % Plt Count (150-450) K/mm3 MPV (6-9.5) fl Gran % (36.0-66.0) % Eos # (Auto) (0-0.5) Absolute Lymphs (auto) (1.0-4.6) Absolute Monos (auto) (0.0-1.3) Lymphocytes % (24.0-44.0) % Monocytes % (0.0-12.0) % Eosinophils % (0.00-5.0) % Basophils % (0.0-0.4) % Absolute Granulocytes (1.4-6.9) Basophils # (0-0.4) Sodium (137-145) mmol/L Potassium (3.5-5.1) mmol/L Chloride (98-107) mmol/L Carbon Dioxide (22-30) mmol/L Anion Gap (5-15) MEQ/L BUN (9-20) mg/dL Creatinine (0.66-1.25) mg/dL Estimated GFR ML/MIN Glucose (74-106) mg/dL Lactic Acid 1.2 2.0 (0.4-2.0) Calcium (8.4-10.2) mg/dL Total Bilirubin (0.2-1.3) mg/dL AST (17-59) U/L ALT (0-50) U/L Alkaline Phosphatase (38-126) U/L Serum Total Protein (6.3-8.2) g/dL Albumin (3.5-5.0) g/dL Amylase (30-110) U/L Lipase (23-300) U/L Urine Color YELLOW (YELLOW) Urine Appearance CLEAR (CLEAR) Urine pH 5.0 (5-6) Ur Specific [place] 1.018 (1.005-1.025) Urine Protein 30 (Negative) Urine Ketones NEGATIVE (NEGATIVE) Urine Blood NEGATIVE (0-5) Pepe/ul Urine Nitrite NEGATIVE (NEGATIVE) Urine Bilirubin NEGATIVE (NEGATIVE) Urine Urobilinogen NEGATIVE (0-1) mg/dL Ur Leukocyte Esterase NEGATIVE (NEGATIVE) Urine WBC (Auto) NONE (0-5) /HPF Urine RBC (Auto) NONE (0-2) /HPF U Epithel Cells (Auto) NONE (FEW) /HPF Urine Bacteria (Auto) NONE (NEGATIVE) /HPF Urine Mucus (Auto) SLIGHT (NEGATIVE) /HPF Urine Culture Reflexed ORDERED SEPARATELY (NO) Urine Glucose >=500 (NEGATIVE) mg/dL 04/30/19 04/30/19 Range/Units 17:58 17:58 WBC 9.1 (4.0-10.5) K/mm3 RBC 5.00 (4.1-5.6) M/mm3 Hgb 14.7 (12.5-18.0) gm/dl Hct 42.9 (42-50) % MCV 85.8 (78-100) fl MCH 29.4 (26-32) pg MCHC 34.3 (32-36) g/dl RDW 13.5 (11.5-14.0) % Plt Count 324 (150-450) K/mm3 MPV 10.4 H (6-9.5) fl Gran % 67.5 H (36.0-66.0) % Eos # (Auto) 0.17 (0-0.5) Absolute Lymphs (auto) 1.80 (1.0-4.6) Absolute Monos (auto) 0.96 (0.0-1.3) Lymphocytes % 19.8 L (24.0-44.0) % Monocytes % 10.5 (0.0-12.0) % Eosinophils % 1.9 (0.00-5.0) % Basophils % 0.3 (0.0-0.4) % Absolute Granulocytes 6.14 (1.4-6.9) Basophils # 0.03 (0-0.4) Sodium 139 (137-145) mmol/L Potassium 3.8 (3.5-5.1) mmol/L Chloride 109 H (98-107) mmol/L Carbon Dioxide 21 L (22-30) mmol/L Anion Gap 13.0 (5-15) MEQ/L BUN 21 H (9-20) mg/dL Creatinine 1.11 (0.66-1.25) mg/dL Estimated GFR > 60.0 ML/MIN Glucose 151 H (74-106) mg/dL Lactic Acid (0.4-2.0) Calcium 10.0 (8.4-10.2) mg/dL Total Bilirubin 0.50 (0.2-1.3) mg/dL AST 17 (17-59) U/L ALT 11 (0-50) U/L Alkaline Phosphatase 93 (38-126) U/L Serum Total Protein 7.5 (6.3-8.2) g/dL Albumin 3.9 (3.5-5.0) g/dL Amylase 103 (30-110) U/L Lipase 82 (23-300) U/L Urine Color (YELLOW) Urine Appearance (CLEAR) Urine pH (5-6) Ur Specific [place] (1.005-1.025) Urine Protein (Negative) Urine Ketones (NEGATIVE) Urine Blood (0-5) Pepe/ul Urine Nitrite (NEGATIVE) Urine Bilirubin (NEGATIVE) Urine Urobilinogen (0-1) mg/dL Ur Leukocyte Esterase (NEGATIVE) Urine WBC (Auto) (0-5) /HPF Urine RBC (Auto) (0-2) /HPF U Epithel Cells (Auto) (FEW) /HPF Urine Bacteria (Auto) (NEGATIVE) /HPF Urine Mucus (Auto) (NEGATIVE) /HPF Urine Culture Reflexed (NO) Urine Glucose (NEGATIVE) mg/dL - Progress Progress: improved, re-examined Progress Note: 04/30/19 22:08 ct head-no acute process. unchanged from [address] ro. i reviewed pt hx, condition, lab and xray results. ok to place in obs. will rehydrate Discussed with : Haley Counseled pt/family regarding: lab results, diagnosis, need for follow-up, rad results - Departure Departure Disposition: Home Clinical Impression: Weakness, Confusion Condition: Fair Critical Care Time: No Referrals: JESSI RO MD [Primary Care Provider] -
[2019-04-30] MEDS ORDERED: Sodium Chloride 0.9% 1000 ML 1,000 ML IV STA (17:39)
[2019-04-30] MEDS ORDERED: Zofran 4 MG/2 ML VIAL IV ONE (17:39)
[2019-04-30] MEDS ORDERED: Sodium Chloride 0.9% 1000 ML 1,000 ML ONE (17:45)
[2019-04-30 18:32] LABS: ALBUMIN 3.9 g/dL (3.5-5.0); ALKALINE PHOSPHATASE 93 U/L (38-126); AMYLASE 103 U/L (30-110); BLOOD UREA NITROGEN 21 mg/dL (9-20); CHLORIDE 109 mmol/L (98-107); Carbon Dioxide 21 mmol/L (22-30); Creatinine 1 1.11 mg/dL (0.66-1.25); Glucose 151 mg/dL (74-106); LIPASE 82 U/L (23-300); Potassium 3.8 mmol/L (3.5-5.1); SGOT/AST 17 U/L (17-59); SGPT/ALT 11 U/L (0-50); SODIUM 139 mmol/L (137-145); Total Protein 7.5 g/dL (6.3-8.2)
[2019-04-30 18:32] LABS: Appearance CLEAR (CLEAR); Bilirubin NEGATIVE (NEGATIVE); Blood NEGATIVE Ery/ul (0-5); Glucose >=500 mg/dL (NEGATIVE); Ketones NEGATIVE (NEGATIVE); Leukocyte Esterase NEGATIVE (NEGATIVE); Mucus SLIGHT /HPF (NEGATIVE); Nitrite NEGATIVE (NEGATIVE); Protein,Urine Dip 30 (Negative); Specific Gravity 1.018 (1.005-1.025); Urobilinogen NEGATIVE mg/dL (0-1)
[2019-04-30 18:33] LABS: Absolute Neutrophil Ct (ANC) 6.14 (1.4-6.9); BASOPHIL % 0.3 % (0.0-0.4); Basophil (Absolute #) 0.03 (0-0.4); Eosinophil % 1.9 % (0.00-5.0); Eosinophil (Absolute #) 0.17 (0-0.5); Hematocrit 42.9 % (42-50); Hemoglobin 14.7 gm/dl (12.5-18.0); Lymphocytes % 19.8 % (24.0-44.0); Mean Cell Volume 85.8 fl (78-100); Mean Corpuscular Hemoglobin 29.4 pg (26-32); Mean Corpuscular Hgb Concent. 34.3 g/dl (32-36); Mean Platelet Volume 10.4 fl (6-9.5); Monocyte (Absolute #) 0.96 (0.0-1.3); Monocytes % 10.5 % (0.0-12.0); Neutrophil % 67.5 % (36.0-66.0); Platelet Count 324 K/mm3 (150-450); Red Cell Distribution Width 13.5 % (11.5-14.0); White Blood Count 9.1 K/mm3 (4.0-10.5)
[2019-04-30] MEDS ORDERED: Zofran 4 MG/2 ML VIAL IV PRN (22:43)
[2019-04-30] MEDS ORDERED: TYLENOL 325 MG PO PRN (22:43)
[2019-04-30] MEDS: Sodium Chloride 0.9% 1000 ML 1,000 ML IV SCH (22:58)
[2019-05-01 04:54] LABS: Absolute Neutrophil Ct (ANC) 7.15 (1.4-6.9); BASOPHIL % 0.5 % (0.0-0.4); Basophil (Absolute #) 0.05 (0-0.4); Eosinophil % 2.1 % (0.00-5.0); Eosinophil (Absolute #) 0.23 (0-0.5); Hematocrit 41.8 % (42-50); Hemoglobin 14.2 gm/dl (12.5-18.0); Lymphocyte (Absolute #) 2.44 (1.0-4.6); Lymphocytes % 22.1 % (24.0-44.0); Mean Cell Volume 86.7 fl (78-100); Mean Corpuscular Hemoglobin 29.5 pg (26-32); Mean Platelet Volume 10.1 fl (6-9.5); Monocyte (Absolute #) 1.18 (0.0-1.3); Monocytes % 10.7 % (0.0-12.0); Neutrophil % 64.6 % (36.0-66.0); Platelet Count 295 K/mm3 (150-450); Red Blood Count 4.82 M/mm3 (4.1-5.6); Red Cell Distribution Width 13.6 % (11.5-14.0); White Blood Count 11.1 K/mm3 (4.0-10.5)
[2019-05-01 05:50] LABS: ALBUMIN 3.6 g/dL (3.5-5.0); ALKALINE PHOSPHATASE 79 U/L (38-126); ANION GAP 11.3 MEQ/L (5-15); BLOOD UREA NITROGEN 17 mg/dL (9-20); CHLORIDE 109 mmol/L (98-107); Calcium 9.3 mg/dL (8.4-10.2); Carbon Dioxide 23 mmol/L (22-30); Creatinine 1 1.09 mg/dL (0.66-1.25); Glucose 166 mg/dL (74-106); Potassium 3.7 mmol/L (3.5-5.1); SGOT/AST 18 U/L (17-59); SGPT/ALT 10 U/L (0-50); SODIUM 140 mmol/L (137-145)
--- NOTE | 2019-05-01 08:33 | XRAY ---
Indication: Confusion and weakness. Alzheimer's. Multiple contiguous axial images obtained through the head without contrast. Comparison: 2014 Again age-appropriate global atrophy and mild periventricular degenerative micro-ischemia bilaterally. No acute intracranial hemorrhage, abnormal extra-axial fluid collection, or mass effect. Fourth ventricle is midline without hydrocephalus. Bony calvarium intact. Mild mucosal thickening right maxillary sinus without fluid leveling. Remaining visualized paranasal sinuses and mastoid air cells are clear. Impression: Nonacute senile brain. Mild paranasal sinus disease. CT DI 54.33
[2019-05-01] MEDS ORDERED: IRBESARTAN PO SCH (10:00)
[2019-05-01] MEDS ORDERED: HYDROCHLOROTHIAZIDE PO SCH (10:00)
[2019-05-01] MEDS ORDERED: NON-FORMULARY ITEM (Memantine Hcl [Memantine Hcl] 10 MG) PO SCH (10:00)
[2019-05-01] MEDS ORDERED: [UNRECOGNIZED DRUG - OTHER] PO SCH (10:00)
[2019-05-01] MEDS ORDERED: INSULIN DETEMIR SQ SCH (10:00)
[2019-05-01] MEDS ORDERED: NON-FORMULARY ITEM (Potassium Chloride [K-Dur] 20 MEQ) PO SCH (10:00)
[2019-05-01] MEDS: Aricept 10 MG PO SCH (10:18)
[2019-05-01] MEDS: hydroDIURIL 25 MG PO SCH (10:19)
[2019-05-01] MEDS: Flomax 0.4 MG PO SCH (10:19)
[2019-05-01] MEDS: Avapro 150 MG PO SCH (10:19)
[2019-05-01] MEDS: Klor Con 10 MEQ PO SCH ×3 (10:20→21:20)
[2019-05-01] MEDS: Namenda 5 MG PO SCH ×2 (10:20→21:20)
[2019-05-01] MEDS: SYNTHROID 75 MCG PO SCH (10:20)
[2019-05-01] MEDS: Lantus Insulin SQ SCH ×2 (10:21→19:48)
[2019-05-01] MEDS: NovoLOG Insulin SQ PRN ×3 (10:21→22:45)
--- NOTE | 2019-05-01 11:09 | PCM.HP ---
History of Present Illness - Chief Complaint Chief Complaint: weakness and confusion History of Present Illness: is a 74 year old male with chronic dementia, he lives at home and is cared for by his . normally he is functional in the home, she came home yesterday and he was sitting on the kitchen floor, he was helped up and then his legs became very weak later in the day while he was ambulating and slowly went to the floor. he denies any pain, no fever, no cough or urinary symptoms. he appears to be at his cognitive baseline today according to his . - Review of Systems Constitutional: No Fever, No Chills Respiratory: No Cough, No Short Of Breath Cardiac: No Chest Pain, No Edema, No Syncope Abdominal/Gastrointestinal: No Abdominal Pain, No Nausea, No Vomiting, No Diarrhea Musculoskeletal: Other (weakness) Skin: No Rash Medications & Allergies Home Medications: Home Medication List Donepezil HCl 10 mg [Aricept 10 MG] 10 mg PO DAILY 07/20/18 [History Confirmed 04/30/19] Insulin Detemir [Levemir] 60 - 65 unit SQ BID 07/20/18 [History Confirmed ] Insulin Lispro [Humalog Kwikpen U-100] 45 unit SQ BID 07/20/18 [History Confirmed 04/30/19] Irbesartan/Hydrochlorothiazide [Irbesartan-Hctz 150-12.5 mg Tb] 1 each PO DAILY 07/20/18 [History Confirmed 04/30/19] Levothyroxine Sodium 75 Mcg [Synthroid 75 Mcg] 75 mcg PO DAILY 07/20/18 [ History Confirmed 04/30/19] Medroxyprogesterone Acet [Depo-Provera] 150 mg IM UD 07/20/18 [History Confirmed 04/30/19] Memantine HCl 10 mg PO BID 07/20/18 [History Confirmed 04/30/19] Potassium Chloride [K-Dur] 20 meq PO TID 07/20/18 [History Confirmed 04/30/19] Vitamin E 1,000 unit PO DAILY 07/20/18 [History Confirmed 04/30/19] Cyanocobalamin (Vitamin B-12) [Vitamin B12] 1,000 mcg PO DAILY 04/30/19 [ History Confirmed 04/30/19] Folic Acid 1 tab PO DAILY 04/30/19 [History Confirmed 04/30/19] Metformin HCl 850 mg [Glucophage 850 MG] 850 mg PO TID 04/30/19 [History Confirmed 04/30/19] Tamsulosin HCl 0.4 mg [Flomax 0.4 MG] 0.4 mg PO DAILY 04/30/19 [History Confirmed 04/30/19] Allergies/Adverse Reactions: Allergies Allergy/AdvReac Type Severity Reaction Status Date / Time naproxen [From Naprosyn] AdvReac Mild Verified 04/30/19 23:49 - Past Medical History Past Medical History: Yes Neurological History: Alzheimer's Disease, Dementia ENT History: No Pertinent History Cardiac History: High Cholesterol, Hypertension Respiratory History: No Pertinent History Endocrine Medical History: Diabetes Type II, Hypothyroidism Musculoskelatal History: No Pertinent History GI Medical History: No Pertinent History History: Kidney Cancer Pyscho-Social History: No Pertinent History Male Reproductive Disorders: No Pertinent History Comment: Kidney cancer 1998 R kidney removed - Past Surgical History Past Surgical History: Yes Neuro Surgical History: No Pertinent History Cardiac History: No Pertinent History Respiratory Surgery: No Pertinent History GI Surgical History: Appendectomy, Cholecystectomy Genitourinary Surgical Hx: Kidney Surgery Musculskeletal Surgical Hx: No Pertinent History Male Surgical History: Vasectomy Other Surgical History: nasal surgery-plastic bridge, tonsils removed, (2013) kidney CA back on left kidney refused tx - Social History Smoking Status: Never smoker Exposure to second hand smoke: No Alcohol: None Drug Use: none - Physical Exam Vital Signs: Vital Signs - 24 hr Temp Pulse Resp BP Pulse Ox 05/01/19 08:00 20 05/01/19 07:07 98.2 F 86 20 138/78 97 05/01/19 04:00 98.1 F 88 12 147/73 96 04/30/19 23:10 98.5 F 95 H 18 135/77 94 L 04/30/19 22:55 98.5 F 95 H 135/77 94 L 04/30/19 21:50 97.1 F 90 20 140/90 96 04/30/19 21:40 95 H 147/93 96 04/30/19 20:50 82 20 126/75 98 04/30/19 20:40 82 20 126/75 98 04/30/19 19:50 97.1 F 88 136/90 95 04/30/19 19:40 88 136/90 95 04/30/19 18:56 88 16 116/93 97 04/30/19 18:07 16 129/86 04/30/19 16:53 97.1 F 92 H 18 135/86 97 General Appearance: no apparent distress, alert Neck Exam: normal inspection, non-tender, supple, full range of motion Respiratory Exam: normal breath sounds, lungs clear, No respiratory distress Cardiovascular Exam: regular rate/rhythm, normal heart sounds, normal peripheral pulses Gastrointestinal/Abdomen Exam: soft, normal bowel sounds, No tenderness, No mass Extremity Exam: normal inspection, normal range of motion, pelvis stable Skin Exam: normal color, warm, dry, No rash Wound Assessment: Skin/Wound Assessment Wound/Incision Assessment Start: 04/30/19 23: 42 Text: Status: Active Freq: Q6H Protocol: Document 05/01/19 08:00 CCA (Rec: 05/01/19 09:42 CCA [id number]) Wound Photo Photo Taken No Results - Labs Lab/Micro Results: Accuchecks Date 05/01/19 Time 05:00 Lab Results-Last 24 Hours 04/30/19 04/30/19 04/30/19 Range/Units 17:58 17:58 18:00 WBC 9.1 (4.0-10.5) K/mm3 RBC 5.00 (4.1-5.6) M/mm3 Hgb 14.7 (12.5-18.0) gm/dl Hct 42.9 (42-50) % MCV 85.8 (78-100) fl MCH 29.4 (26-32) pg MCHC 34.3 (32-36) g/dl RDW 13.5 (11.5-14.0) % Plt Count 324 (150-450) K/mm3 MPV 10.4 H (6-9.5) fl Gran % 67.5 H (36.0-66.0) % Eos # (Auto) 0.17 (0-0.5) Absolute Lymphs (auto) 1.80 (1.0-4.6) Absolute Monos (auto) 0.96 (0.0-1.3) Lymphocytes % 19.8 L (24.0-44.0) % Monocytes % 10.5 (0.0-12.0) % Eosinophils % 1.9 (0.00-5.0) % Basophils % 0.3 (0.0-0.4) % Absolute Granulocytes 6.14 (1.4-6.9) Basophils # 0.03 (0-0.4) Sodium 139 (137-145) mmol/L Potassium 3.8 (3.5-5.1) mmol/L Chloride 109 H (98-107) mmol/L Carbon Dioxide 21 L (22-30) mmol/L Anion Gap 13.0 (5-15) MEQ/L BUN 21 H (9-20) mg/dL Creatinine 1.11 (0.66-1.25) mg/dL Estimated GFR > 60.0 ML/MIN Glucose 151 H (74-106) mg/dL Lactic Acid (0.4-2.0) Calcium 10.0 (8.4-10.2) mg/dL Total Bilirubin 0.50 (0.2-1.3) mg/dL AST 17 (17-59) U/L ALT 11 (0-50) U/L Alkaline Phosphatase 93 (38-126) U/L Serum Total Protein 7.5 (6.3-8.2) g/dL Albumin 3.9 (3.5-5.0) g/dL Amylase 103 (30-110) U/L Lipase 82 (23-300) U/L Urine Color YELLOW (YELLOW) Urine Appearance CLEAR (CLEAR) Urine pH 5.0 (5-6) Ur Specific [place] 1.018 (1.005-1.025) Urine Protein 30 (Negative) Urine Ketones NEGATIVE (NEGATIVE) Urine Blood NEGATIVE (0-5) Pepe/ul Urine Nitrite NEGATIVE (NEGATIVE) Urine Bilirubin NEGATIVE (NEGATIVE) Urine Urobilinogen NEGATIVE (0-1) mg/dL Ur Leukocyte Esterase NEGATIVE (NEGATIVE) Urine WBC (Auto) NONE (0-5) /HPF Urine RBC (Auto) NONE (0-2) /HPF U Epithel Cells (Auto) NONE (FEW) /HPF Urine Bacteria (Auto) NONE (NEGATIVE) /HPF Urine Mucus (Auto) SLIGHT (NEGATIVE) /HPF Urine Culture Reflexed ORDERED SEPARATELY (NO) Urine Glucose >=500 (NEGATIVE) mg/dL 04/30/19 04/30/19 05/01/19 Range/Units 18:09 21:05 04:25 WBC 11.1 H (4.0-10.5) K/mm3 RBC 4.82 (4.1-5.6) M/mm3 Hgb 14.2 (12.5-18.0) gm/dl Hct 41.8 L (42-50) % MCV 86.7 (78-100) fl MCH 29.5 (26-32) pg MCHC 34.0 (32-36) g/dl RDW 13.6 (11.5-14.0) % Plt Count 295 (150-450) K/mm3 MPV 10.1 H (6-9.5) fl Gran % 64.6 (36.0-66.0) % Eos # (Auto) 0.23 (0-0.5) Absolute Lymphs (auto) 2.44 (1.0-4.6) Absolute Monos (auto) 1.18 (0.0-1.3) Lymphocytes % 22.1 L (24.0-44.0) % Monocytes % 10.7 (0.0-12.0) % Eosinophils % 2.1 (0.00-5.0) % Basophils % 0.5 (0.0-0.4) % Absolute Granulocytes 7.15 H (1.4-6.9) Basophils # 0.05 (0-0.4) Sodium (137-145) mmol/L Potassium (3.5-5.1) mmol/L Chloride (98-107) mmol/L Carbon Dioxide (22-30) mmol/L Anion Gap (5-15) MEQ/L BUN (9-20) mg/dL Creatinine (0.66-1.25) mg/dL Estimated GFR ML/MIN Glucose (74-106) mg/dL Lactic Acid 2.0 1.2 (0.4-2.0) Calcium (8.4-10.2) mg/dL Total Bilirubin (0.2-1.3) mg/dL AST (17-59) U/L ALT (0-50) U/L Alkaline Phosphatase (38-126) U/L Serum Total Protein (6.3-8.2) g/dL Albumin (3.5-5.0) g/dL Amylase (30-110) U/L Lipase (23-300) U/L Urine Color (YELLOW) Urine Appearance (CLEAR) Urine pH (5-6) Ur Specific [place] (1.005-1.025) Urine Protein (Negative) Urine Ketones (NEGATIVE) Urine Blood (0-5) Pepe/ul Urine Nitrite (NEGATIVE) Urine Bilirubin (NEGATIVE) Urine Urobilinogen (0-1) mg/dL Ur Leukocyte Esterase (NEGATIVE) Urine WBC (Auto) (0-5) /HPF Urine RBC (Auto) (0-2) /HPF U Epithel Cells (Auto) (FEW) /HPF Urine Bacteria (Auto) (NEGATIVE) /HPF Urine Mucus (Auto) (NEGATIVE) /HPF Urine Culture Reflexed (NO) Urine Glucose (NEGATIVE) mg/dL 05/01/19 Range/Units 04:25 WBC (4.0-10.5) K/mm3 RBC (4.1-5.6) M/mm3 Hgb (12.5-18.0) gm/dl Hct (42-50) % MCV (78-100) fl MCH (26-32) pg MCHC (32-36) g/dl RDW (11.5-14.0) % Plt Count (150-450) K/mm3 MPV (6-9.5) fl Gran % (36.0-66.0) % Eos # (Auto) (0-0.5) Absolute Lymphs (auto) (1.0-4.6) Absolute Monos (auto) (0.0-1.3) Lymphocytes % (24.0-44.0) % Monocytes % (0.0-12.0) % Eosinophils % (0.00-5.0) % Basophils % (0.0-0.4) % Absolute Granulocytes (1.4-6.9) Basophils # (0-0.4) Sodium 140 (137-145) mmol/L Potassium 3.7 (3.5-5.1) mmol/L Chloride 109 H (98-107) mmol/L Carbon Dioxide 23 (22-30) mmol/L Anion Gap 11.3 (5-15) MEQ/L BUN 17 (9-20) mg/dL Creatinine 1.09 (0.66-1.25) mg/dL Estimated GFR > 60.0 ML/MIN Glucose 166 H (74-106) mg/dL Lactic Acid (0.4-2.0) Calcium 9.3 (8.4-10.2) mg/dL Total Bilirubin 0.70 (0.2-1.3) mg/dL AST 18 (17-59) U/L ALT 10 (0-50) U/L Alkaline Phosphatase 79 (38-126) U/L Serum Total Protein 7.0 (6.3-8.2) g/dL Albumin 3.6 (3.5-5.0) g/dL Amylase (30-110) U/L Lipase (23-300) U/L Urine Color (YELLOW) Urine Appearance (CLEAR) Urine pH (5-6) Ur Specific [place] (1.005-1.025) Urine Protein (Negative) Urine Ketones (NEGATIVE) Urine Blood (0-5) Pepe/ul Urine Nitrite (NEGATIVE) Urine Bilirubin (NEGATIVE) Urine Urobilinogen (0-1) mg/dL Ur Leukocyte Esterase (NEGATIVE) Urine WBC (Auto) (0-5) /HPF Urine RBC (Auto) (0-2) /HPF U Epithel Cells (Auto) (FEW) /HPF Urine Bacteria (Auto) (NEGATIVE) /HPF Urine Mucus (Auto) (NEGATIVE) /HPF Urine Culture Reflexed (NO) Urine Glucose (NEGATIVE) mg/dL Microbiology 04/30/19 18:00 Urine Culture - Preliminary Catherized NO GROWTH TO DATE Accuchecks Date 05/01/19 Time 05:00 - Radiology Impressions Radiology Exams & Impressions: Radiology Procedures Category Date Time Status HEAD WITHOUT CONTRAST [CT] Stat Exams 04/30/19 18:24 Completed Assessment/Plan (1) Weakness Current Visit: Yes Status: Acute Assessment & Plan: no obvious etiology, was hyperglycemic but improved control now. plan to ambulate and consult PT, ok to return home when safe to ambulate. insists she will take him back home to take care of him Code(s): R53.1 - WEAKNESS (2) Confusion Current Visit: Yes Status: Acute Code(s): R41.0 - DISORIENTATION, UNSPECIFIED (3) Diabetes mellitus Current Visit: No Status: Chronic Code(s): E11.9 - TYPE 2 DIABETES MELLITUS WITHOUT COMPLICATIONS
[2019-05-01] MEDS: ENOXAPARIN SODIUM SQ SCH (12:38)
[2019-05-01] MEDS: Ecotrin 325 MG PO SCH (17:56)
[2019-05-01] MEDS: Sodium Chloride 0.9% 1000 ML 1,000 ML IV SCH (17:56)
[2019-05-02 02:19] LABS: Glucose 162 mg/dL (74-106)
[2019-05-02 03:08] LABS: Vitamin B12 492 pg/mL (239-931)
[2019-05-02 03:34] LABS: ALBUMIN 3.6 g/dL (3.5-5.0); ALKALINE PHOSPHATASE 90 U/L (38-126); ANION GAP 13.9 MEQ/L (5-15); BLOOD UREA NITROGEN 16 mg/dL (9-20); CHLORIDE 113 mmol/L (98-107); Calcium 9.5 mg/dL (8.4-10.2); Carbon Dioxide 17 mmol/L (22-30); Cholesterol 127 mg/dL (50-200); Creatinine 1 1.13 mg/dL (0.66-1.25); HDL CHOLESTEROL 21 mg/dL (40-60); LDL, DIRECT 77 mg/dL (30-100); Potassium 3.7 mmol/L (3.5-5.1); SGOT/AST 15 U/L (17-59); SGPT/ALT 10 U/L (0-50); SODIUM 141 mmol/L (137-145); TRIGLYCERIDE 251 mg/dL (30-150); Total Protein 6.9 g/dL (6.3-8.2)
--- NOTE | 2019-05-02 07:39 | XRAY ---
Indication: Right-sided weakness. Multiple contiguous axial images obtained through the head without contrast. Comparison: One day earlier. Several images slightly degraded by motion artifact. Grossly stable age appropriate global atrophy, mild periventricular degenerative microvascular ischemia, and left external capsule remote lacunar infarct. No acute intracranial hemorrhage, abnormal extra-axial fluid collection, or mass effect. Fourth ventricle is midline without hydrocephalus. Bony calvarium intact. Stable right maxillary sinus mild mucosal thickening. Impression: Motion artifact. Stable aging brain including atrophy, degenerative micro-ischemia, and left external capsule lacunar infarct. Stable right maxillary sinus disease. No new/acute intracranial abnormalities. CTDI 56.14
--- NOTE | 2019-05-02 08:02 | PCM.NOTE ---
Date and Time: 05/02/19 0759 Subjective Assessment: last 24 hours events noted. - Review of Systems Constitutional: No Fever, No Chills Eyes: No Symptoms Ears, Nose, & Throat: No Symptoms Respiratory: No Cough, No Short Of Breath Cardiac: No Chest Pain, No Edema, No Syncope Abdominal/Gastrointestinal: No Abdominal Pain, No Nausea, No Vomiting, No Diarrhea Genitourinary Symptoms: No Dysuria Musculoskeletal: No Back Pain, No Neck Pain Skin: No Rash Neurological: No Dizziness, No Focal Weakness, No Sensory Changes Psychological: No Symptoms Endocrine: No Symptoms Hematologic/Lymphatic: No Symptoms Immunological/Allergic: No Symptoms Objective Exam General Appearance: no apparent distress, alert Neurologic Exam: alert, oriented x 3, cooperative, normal mood/affect, nml cerebellar function, sensation nml, No motor deficits Skin Exam: normal color, warm, dry Wound Assessment: Skin/Wound Assessment Wound/Incision Assessment Start: 04/30/19 23: 42 Text: Status: Active Freq: Q6H Protocol: Document 05/02/19 02:00 [place] (Rec: 05/02/19 03:55 [place] [id number]) Wound Photo Photo Taken No Eye Exam: PERRL, EOMI, eyes nml inspection Ears, Nose, Throat Exam: normal ENT inspection, pharynx normal, moist mucous membranes Neck Exam: normal inspection, non-tender, supple, full range of motion Respiratory Exam: normal breath sounds, lungs clear, No respiratory distress Cardiovascular Exam: regular rate/rhythm, normal heart sounds Gastrointestinal/Abdomen Exam: soft, No tenderness, No mass Extremity Exam: normal inspection, normal range of motion Back Exam: normal inspection, normal range of motion, No CVA tenderness, No vertebral tenderness Male Genitalia Exam: deferred Rectal Exam: deferred OBJECTIVE DATA Vital Signs: Vital Signs - 24 hr Temp Pulse Resp BP Pulse Ox 05/02/19 04:13 98.1 F 108 H 32 H 130/87 93 L 05/02/19 04:00 20 05/02/19 00:00 98.1 F 112 H 20 126/76 96 05/01/19 20:05 98.8 F 97 H 22 140/71 97 05/01/19 20:00 22 05/01/19 16:15 98.1 F 74 20 144/86 95 05/01/19 13:19 90 20 159/66 94 L 05/01/19 12:30 98.1 F 90 20 123/68 96 05/01/19 12:00 20 05/01/19 08:00 20 Pain Assessment - Last Documented Pain Intensity 0 Pain Scale Used 0-10 Pain Scale,FLACC Intake and Output: Intake & Output 04/29/19 04/30/19 05/01/19 05/02/19 11:59 11:59 11:59 11:59 Intake Total 740 1757 Output Total 475 2000 Balance 265 -243 Weight 85 kg 85.6 kg Lab Results: Accuchecks Date 05/01/19 Time 11:30 Accucheck Value: 353 Lab Results-Last 24 Hours 05/01/19 05/02/19 05/02/19 Range/Units 18:14 01:59 01:59 Sodium 141 (137-145) mmol/L Potassium 3.7 (3.5-5.1) mmol/L Chloride 113 H (98-107) mmol/L Carbon Dioxide 17 L (22-30) mmol/L Anion Gap 13.9 (5-15) MEQ/L BUN 16 (9-20) mg/dL Creatinine 1.13 (0.66-1.25) mg/dL Estimated GFR > 60.0 ML/MIN Glucose 162 H (74-106) mg/dL Hemoglobin A1c (4.5-6.0) % Calcium 9.5 (8.4-10.2) mg/dL Total Bilirubin 0.80 (0.2-1.3) mg/dL AST 15 L (17-59) U/L ALT 10 (0-50) U/L Alkaline Phosphatase 90 (38-126) U/L Troponin I < 0.012 < 0.012 (0.000-0.034) ng/mL Serum Total Protein 6.9 (6.3-8.2) g/dL Albumin 3.6 (3.5-5.0) g/dL Triglycerides 251 H (30-150) mg/dL Cholesterol 127 (50-200) mg/dL LDL Cholesterol 77 (30-100) mg/dL HDL Cholesterol 21 L (40-60) mg/dL Heart Disease Risk Ratio 6.0 Vitamin B12 492 (239-931) pg/mL TSH 3rd Generation 4.390 (0.47-4.68) mIU/L 12/25/19 Range/Units 01:59 Sodium (137-145) mmol/L Potassium (3.5-5.1) mmol/L Chloride (98-107) mmol/L Carbon Dioxide (22-30) mmol/L Anion Gap (5-15) MEQ/L BUN (9-20) mg/dL Creatinine (0.66-1.25) mg/dL Estimated GFR ML/MIN Glucose (74-106) mg/dL Hemoglobin A1c 9.40 H (4.5-6.0) % Calcium (8.4-10.2) mg/dL Total Bilirubin (0.2-1.3) mg/dL AST (17-59) U/L ALT (0-50) U/L Alkaline Phosphatase (38-126) U/L Troponin I (0.000-0.034) ng/mL Serum Total Protein (6.3-8.2) g/dL Albumin (3.5-5.0) g/dL Triglycerides (30-150) mg/dL Cholesterol (50-200) mg/dL LDL Cholesterol (30-100) mg/dL HDL Cholesterol (40-60) mg/dL Heart Disease Risk Ratio Vitamin B12 (239-931) pg/mL TSH 3rd Generation (0.47-4.68) mIU/L Radiology Exams: Radiology Procedures Category Date Time Status ECHO W/2D AND DOPPLER [US] Routine Exams 05/03/19 10:00 Ordered HEAD WITHOUT CONTRAST [CT] Stat Exams 04/30/19 18:24 Completed HEAD WITHOUT CONTRAST [CT] Stat Exams 05/01/19 16:55 Completed MRI BRAIN W & W/O CONTRAST [MRI] Routine Exams 05/03/19 08:00 Ordered Assessment/Plan (1) Confusion Current Visit: Yes Status: Resolved Code(s): R41.0 - DISORIENTATION, UNSPECIFIED (2) Weakness Current Visit: Yes Status: Resolved Code(s): R53.1 - WEAKNESS (3) Dementia Current Visit: No Status: Chronic Code(s): F03.90 - UNSPECIFIED DEMENTIA WITHOUT BEHAVIORAL DISTURBANCE (4) Diabetes mellitus Current Visit: Yes Status: Chronic Qualifiers: Diabetes mellitus type: type 2 Diabetes mellitus complication status: with hyperglycemia Code(s): E11.9 - TYPE 2 DIABETES MELLITUS WITHOUT COMPLICATIONS
[2019-05-02] MEDS ORDERED: DUONEB 0.5-3 MG/3 ml Neb IH PRN (08:32)
[2019-05-02 10:41] LABS: Absolute Neutrophil Ct (ANC) 10.02 (1.4-6.9); BASOPHIL % 0.2 % (0.0-0.4); Basophil (Absolute #) 0.03 (0-0.4); Eosinophil % 0.7 % (0.00-5.0); Eosinophil (Absolute #) 0.09 (0-0.5); Hematocrit 42.4 % (42-50); Hemoglobin 14.7 gm/dl (12.5-18.0); Lymphocyte (Absolute #) 1.63 (1.0-4.6); Lymphocytes % 12.3 % (24.0-44.0); Mean Cell Volume 85.5 fl (78-100); Mean Corpuscular Hemoglobin 29.6 pg (26-32); Mean Corpuscular Hgb Concent. 34.7 g/dl (32-36); Mean Platelet Volume 10.6 fl (6-9.5); Monocyte (Absolute #) 1.49 (0.0-1.3); Monocytes % 11.2 % (0.0-12.0); Neutrophil % 75.6 % (36.0-66.0); Platelet Count 335 K/mm3 (150-450); Red Blood Count 4.96 M/mm3 (4.1-5.6); Red Cell Distribution Width 13.7 % (11.5-14.0); White Blood Count 13.3 K/mm3 (4.0-10.5)
[2019-05-02] MEDS: Lantus Insulin SQ SCH ×2 (11:17→21:03)
[2019-05-02] MEDS: hydroDIURIL 25 MG PO SCH (11:17)
[2019-05-02] MEDS: Aricept 10 MG PO SCH (11:17)
[2019-05-02] MEDS: Avapro 150 MG PO SCH (11:17)
[2019-05-02] MEDS: Ecotrin 325 MG PO SCH (11:18)
[2019-05-02] MEDS: Flomax 0.4 MG PO SCH (11:18)
[2019-05-02] MEDS: Klor Con 10 MEQ PO SCH ×3 (11:18→21:03)
[2019-05-02] MEDS: Namenda 5 MG PO SCH ×2 (11:19→21:03)
[2019-05-02] MEDS: SYNTHROID 75 MCG PO SCH (11:20)
[2019-05-02] MEDS: ENOXAPARIN SODIUM SQ SCH (11:41)
[2019-05-02] MEDS: Sodium Chloride 0.9% 1000 ML 1,000 ML IV SCH (16:36)
--- NOTE | 2019-05-02 21:27 | XRAY ---
Indication: Abnormal lung sounds. Comparison: July 20, 2018. Portable chest remains clear. Heart and mediastinal structures within normal limits. Bony thorax intact again with mild degenerative changes. Impression: Stable nonacute chest. Comment: Preliminary interpretation was made by [facility]. No discrepancy.
[2019-05-03] MEDS: Lantus Insulin SQ SCH ×2 (08:13→21:08)
[2019-05-03] MEDS: ENOXAPARIN SODIUM SQ SCH (09:38)
[2019-05-03] MEDS: Aricept 10 MG PO SCH ×2 (10:20→17:03)
[2019-05-03] MEDS: Avapro 150 MG PO SCH ×2 (10:21→17:03)
[2019-05-03] MEDS: Ecotrin 325 MG PO SCH ×2 (10:21→17:01)
[2019-05-03] MEDS: Flomax 0.4 MG PO SCH ×2 (10:21→17:02)
[2019-05-03] MEDS: hydroDIURIL 25 MG PO SCH ×2 (10:22→17:03)
[2019-05-03] MEDS: Namenda 5 MG PO SCH ×2 (10:22→20:58)
[2019-05-03] MEDS: SYNTHROID 75 MCG PO SCH ×2 (10:22→17:02)
[2019-05-03] MEDS: Klor Con 10 MEQ PO SCH ×4 (10:22→20:58)
[2019-05-03] MEDS: Sodium Chloride 0.9% 1000 ML 1,000 ML IV SCH (12:37)
[2019-05-03] MEDS: NovoLOG Insulin SQ PRN (17:12)
[2019-05-04] MEDS: Lantus Insulin SQ SCH ×2 (08:14→21:05)
[2019-05-04] MEDS ORDERED: Sodium Chloride 0.9% 10 ML FLUSH Syringe IV PRN (08:30)
[2019-05-04] MEDS ORDERED: FEVERALL 650 MG PR ONE (08:52)
[2019-05-04] MEDS: Avapro 150 MG PO SCH (09:27)
[2019-05-04] MEDS: Flomax 0.4 MG PO SCH (09:27)
[2019-05-04] MEDS: Aricept 10 MG PO SCH (09:27)
[2019-05-04] MEDS: Ecotrin 325 MG PO SCH (09:27)
[2019-05-04] MEDS: Namenda 5 MG PO SCH ×2 (09:28→20:54)
[2019-05-04] MEDS: SYNTHROID 75 MCG PO SCH (09:28)
[2019-05-04] MEDS: hydroDIURIL 25 MG PO SCH (09:28)
[2019-05-04] MEDS: Klor Con 10 MEQ PO SCH ×3 (09:28→20:54)
[2019-05-04] MEDS: ENOXAPARIN SODIUM SQ SCH (10:09)
[2019-05-04] MEDS ORDERED: PHARMACY DOSING REQUEST MC ONE (12:57)
[2019-05-04] MEDS ORDERED: FEVERALL 650 MG PR PRN (13:03)
[2019-05-04 13:20] LABS: Hematocrit 44.2 % (42-50); Hemoglobin 14.8 gm/dl (12.5-18.0); Mean Corpuscular Hemoglobin 29.5 pg (26-32); Mean Corpuscular Hgb Concent. 33.5 g/dl (32-36); Mean Platelet Volume 10.2 fl (6-9.5); Platelet Count 332 K/mm3 (150-450); Red Blood Count 5.02 M/mm3 (4.1-5.6); Red Cell Distribution Width 14.1 % (11.5-14.0); White Blood Count 12.8 K/mm3 (4.0-10.5)
[2019-05-04 13:30] LABS: ALBUMIN 3.7 g/dL (3.5-5.0); ANION GAP 16.8 MEQ/L (5-15); BILIRUBIN,TOTAL 1.1 mg/dL (0.2-1.3); Calcium 9.3 mg/dL (8.4-10.2); Creatinine 1 1.51 mg/dL (0.66-1.25); Total Protein 7.4 g/dL (6.3-8.2)
--- NOTE | 2019-05-04 13:33 | XRAY ---
Indication: Aspiration. Comparison: May 02, 2019. Portable chest remains clear. Heart is not enlarged. No new/acute cardiopulmonary abnormalities.
[2019-05-04] MEDS ORDERED: Augmentin 500-125 Tablet PO SCH (13:45)
[2019-05-04 13:52] LABS: BAND 3 % (0.0-2.0); Lymphocytes 15 % (24-44); Monocyte 5 % (0.0-12.0); Neutrophils 77 % (36.-66.); Total Cells Counted 100
[2019-05-04 13:53] LABS: Platelet Estimate NORMAL (NORMAL)
[2019-05-04] MEDS: Unasyn 3GM / NaCl 100ML 3 GM/100 ML IVPB IV SCH ×2 (14:28→21:04)
[2019-05-04] MEDS: Sodium Chloride 0.9% W/ 20 mEq KCl/LITER 1,000 ML IV SCH (14:28)
[2019-05-04] MEDS: Sodium Chloride 0.9% 10 ML FLUSH Syringe IV SCH ×2 (14:30→20:54)
[2019-05-05] MEDS: Sodium Chloride 0.9% W/ 20 mEq KCl/LITER 1,000 ML IV SCH ×3 (00:40→21:02)
[2019-05-05] MEDS: Sodium Chloride 0.9% 10 ML FLUSH Syringe IV SCH ×3 (05:02→20:48)
[2019-05-05 05:52] LABS: Hematocrit 45.8 % (42-50); Hemoglobin 15.3 gm/dl (12.5-18.0); Mean Cell Volume 88.9 fl (78-100); Mean Corpuscular Hemoglobin 29.7 pg (26-32); Mean Corpuscular Hgb Concent. 33.4 g/dl (32-36); Mean Platelet Volume 10.5 fl (6-9.5); Platelet Count 349 K/mm3 (150-450); Red Blood Count 5.15 M/mm3 (4.1-5.6); Red Cell Distribution Width 14.1 % (11.5-14.0); White Blood Count 13.7 K/mm3 (4.0-10.5)
[2019-05-05 05:59] LABS: ALBUMIN 3.6 g/dL (3.5-5.0); ALKALINE PHOSPHATASE 88 U/L (38-126); ANION GAP 13.9 MEQ/L (5-15); BLOOD UREA NITROGEN 19 mg/dL (9-20); CHLORIDE 117 mmol/L (98-107); Calcium 9.5 mg/dL (8.4-10.2); Carbon Dioxide 18 mmol/L (22-30); Creatinine 1 1.18 mg/dL (0.66-1.25); Glucose 181 mg/dL (74-106); Potassium 3.9 mmol/L (3.5-5.1); SGOT/AST 30 U/L (17-59); SGPT/ALT 13 U/L (0-50); SODIUM 145 mmol/L (137-145); Total Protein 7.6 g/dL (6.3-8.2)
[2019-05-05 07:09] LABS: Lymphocytes 5 % (24-44); Monocyte 7 % (0.0-12.0); Neutrophils 88 % (36.-66.); Total Cells Counted 100
[2019-05-05 07:10] LABS: Platelet Estimate NORMAL (NORMAL)
--- NOTE | 2019-05-05 09:46 | PCM.NOTE ---
Date and Time: 05/05/19943 Subjective Assessment: events of the last few days noted, patient has sufferred a severe cva, he is unable to take po. having trouble handling secretions at this time. he denies pain, not able to communicate much at this point. is concerned with milers being able to suction him and keep him comfortable etc. Objective Exam General Appearance: no apparent distress Neurologic Exam: No alert, No oriented x 3 Respiratory Exam: normal breath sounds, lungs clear, No respiratory distress Cardiovascular Exam: regular rate/rhythm, normal heart sounds OBJECTIVE DATA Vital Signs: Vital Signs - 24 hr Temp Pulse Resp BP Pulse Ox 05/05/19 08:00 22 05/05/19 07:00 98.3 F 109 H 20 136/73 96 05/05/19 04:00 99.6 F 109 H 28 H 136/77 97 05/05/19 00:00 99.1 F 109 H 24 150/74 97 05/04/19 20:32 110 H 22 84 L 05/04/19 20:00 97.8 F 112 H 22 121/56 90 L 05/04/19 16:00 99.3 F 109 H 21 148/72 97 05/04/19 12:00 99.6 F 108 H 18 113/57 98 05/04/19 11:55 24 05/04/19 09:50 111 H 99 Oxygen-Last 24 hours O2 Percentage 70% Oxygen Flowrate (L/min)-RT 12 Oxygen Flowrate (L/min)-RT 12 Oxygen Flowrate (L/min)-RT 8 Oxygen Flowrate (L/min)-RT 8 Pain Assessment - Last Documented Pain Intensity 0 Pain Scale Used 0-10 Pain Scale Intake and Output: Intake & Output 05/02/19 05/03/19 05/04/19 05/05/19 11:59 11:59 11:59 11:59 Intake Total 1757 2687 310 6073 Output Total 2000 400 1300 1250 Balance -243 720 -506 209 Weight 85.6 kg 85.4 kg 84 kg 83.6 kg Lab Results: Accuchecks Date 05/05/19 Date 05/04/19 Date 05/04/19 Date 05/04/19 Time 07:30 Time 22:00 Time 18:13 Time 11:37 Accucheck Value: 174 Accucheck Value: 162 Accucheck Value: 198 Accucheck Value: 288 Lab Results-Last 24 Hours 05/04/19 05/04/19 05/05/19 Range/Units 13:16 13:16 05:22 WBC 12.8 H 13.7 H (4.0-10.5) K/mm3 RBC 5.02 5.15 (4.1-5.6) M/mm3 Hgb 14.8 15.3 (12.5-18.0) gm/dl Hct 44.2 45.8 (42-50) % MCV 88.0 88.9 (78-100) fl MCH 29.5 29.7 (26-32) pg MCHC 33.5 33.4 (32-36) g/dl RDW 14.1 H 14.1 H (11.5-14.0) % Plt Count 332 349 (150-450) K/mm3 MPV 10.2 H 10.5 H (6-9.5) fl Segmented Neutrophils 77 H 88 H (36.-66.) % Band Neutrophils 3 H (0.0-2.0) % Lymphocytes (Manual) 15 L 5 L (24-44) % Monocytes (Manual) 5 7 (0.0-12.0) % Platelet Estimate NORMAL NORMAL (NORMAL) RBC Morphology NORMAL NORMAL Sodium 145 (137-145) mmol/L Potassium 4.0 (3.5-5.1) mmol/L Chloride 114 H (98-107) mmol/L Carbon Dioxide 17 L (22-30) mmol/L Anion Gap 16.8 H (5-15) MEQ/L BUN 23 H (9-20) mg/dL Creatinine 1.51 H (0.66-1.25) mg/dL Estimated GFR 48.4 ML/MIN Glucose 258 H (74-106) mg/dL Calcium 9.3 (8.4-10.2) mg/dL Total Bilirubin 1.10 (0.2-1.3) mg/dL AST 16 L (17-59) U/L ALT 13 (0-50) U/L Alkaline Phosphatase 83 (38-126) U/L Serum Total Protein 7.4 (6.3-8.2) g/dL Albumin 3.7 (3.5-5.0) g/dL 05/05/19 Range/Units 05:22 WBC (4.0-10.5) K/mm3 RBC (4.1-5.6) M/mm3 Hgb (12.5-18.0) gm/dl Hct (42-50) % MCV (78-100) fl MCH (26-32) pg MCHC (32-36) g/dl RDW (11.5-14.0) % Plt Count (150-450) K/mm3 MPV (6-9.5) fl Segmented Neutrophils (36.-66.) % Band Neutrophils (0.0-2.0) % Lymphocytes (Manual) (24-44) % Monocytes (Manual) (0.0-12.0) % Platelet Estimate (NORMAL) RBC Morphology Sodium 145 (137-145) mmol/L Potassium 3.9 (3.5-5.1) mmol/L Chloride 117 H (98-107) mmol/L Carbon Dioxide 18 L (22-30) mmol/L Anion Gap 13.9 (5-15) MEQ/L BUN 19 (9-20) mg/dL Creatinine 1.18 (0.66-1.25) mg/dL Estimated GFR > 60.0 ML/MIN Glucose 181 H (74-106) mg/dL Calcium 9.5 (8.4-10.2) mg/dL Total Bilirubin 1.10 (0.2-1.3) mg/dL AST 30 (17-59) U/L ALT 13 (0-50) U/L Alkaline Phosphatase 88 (38-126) U/L Serum Total Protein 7.6 (6.3-8.2) g/dL Albumin 3.6 (3.5-5.0) g/dL Radiology Exams: Radiology Procedures Category Date Time Status CHEST 1 VIEW (PORTABLE) Urgent Exams 05/04/19 12:55 Completed Multi-Disciplinary Progress Notes: Multi-Disciplinary Progress Notes 05/05/19 01:01 Respiratory Note by Timothy Holt NURSING CALLED TO STATE PT SATS WERE 88% ON 12LPM OXYMASK POST ORAL SUCTIONING, 83% PRIOR. I INCREASED PT TO 15LPM, DID NT SUCTIONING W/ 3 PASSES AND ORAL SUCTIONING. PT SATS CAME UP TO 93%. I PLACED PT BACK ON 12LPM OXYMASK AND PT SATS CAME DOWN TO 92%. I LEFT PT ON 12LPM. Initialized on 05/05/19 01:01 - END OF NOTE 05/04/19 17:37 Speech Therapy Note by Padma Roberts notified of change in patient's condition this date upon arrival to Med Surg Unit. Discussed need for npo and alternative feeding methods with , who indicated he has a living will and patient had previously stated he did not desire for any tubes to sustain life. did state understanding all options for alternative feeding as informed by ST. Upon arrival into room, patient was unresponsive and laying on his side. Speech and swallowing treatment withheld this date. ST will continue to monitor for change in current status and resume ST as patient tolerates. MS Thomas, CCC/MOSAIC TILER Initialized on 05/04/19 17:37 - END OF NOTE 05/04/19 15:09 Respiratory Note by Danay Adams [id number] nasal airway placed. sx for lg amts creamy red tinged sputum Initialized on 05/04/19 15:09 - END OF NOTE 05/04/19 14:00 (created 05/04/19 14:53) Case Management Note by Cassidy Hall CALLED AND REPORTED THAT THEY ARE READY FOR PT WHEN MD IS READY FOR DISCHARGE. Initialized on 05/04/19 14:53 - END OF NOTE 05/04/19 12:38 Nutrition Note by Ritika Abdul F/u Note: Note ST recommendation for pureed diet with honey thickened liquids d/t moderate dysphagia. Will con't to monitor and f/u prn. T.MS [email or web address] Initialized on 05/04/19 12:38 - END OF NOTE 05/04/19 11:30 (created 05/04/19 12:03) Case Management Note by Cassidy Hall HERE TO EVALUATE, WILL CALL BACK WITH BED AVAILABILITY. Initialized on 05/04/19 12:03 - END OF NOTE 05/04/19 11:11 Physical Therapy Note by Kenna Nicole SPOKE TO ANISH PEARCE WHO REPORTED PATIENT NON-VERBAL AND MINIMALLY RESPONSIVE THIS MORNING. ARRIVED AT PATIENT ROOM WITH PATIENT AT 45 DEGREES ON RIGHT SIDE. ATTEMPTED TO AROUSE PATIENT WITHOUT RESPONSE. WITH PASSIVE RANGE OF MOTION ON RIGHT NO TONE OR RESISTANCE TO RANGE NOTED IN UE OR LE. WITH RANGE OF RIGHT LE PATIENT MOVED LEFT EXTREMITIES BUT NO WITHDRAWAL OR OTHER NON-VERBAL SIGNS OF PAIN. WITH PASSIVE RANGE OF MOTION ON LEFT NOTING NORMAL RESTING TONE. PATIENT DID DEMONSTRATE SOME ACTIVE BUT NON- PURPOSEFUL MOVEMENT WITH THE LEFT UPPER AND LOWER EXTREMITY. KENNA NICOLE, PT Initialized on 05/04/19 11:11 - END OF NOTE Assessment/Plan (1) CVA (cerebral vascular accident) Current Visit: Yes Status: Acute Assessment & Plan: will consult hospice regarding comfort measures/suctioning etc and plan to transfer to [facility] with hospice at this point. Code(s): I63.9 - CEREBRAL INFARCTION, UNSPECIFIED (2) Weakness Current Visit: Yes Status: Resolved Code(s): R53.1 - WEAKNESS (3) Confusion Current Visit: Yes Status: Resolved Code(s): R41.0 - DISORIENTATION, UNSPECIFIED (4) Diabetes mellitus Current Visit: Yes Status: Chronic Qualifiers: Diabetes mellitus type: type 2 Diabetes mellitus complication status: with hyperglycemia Code(s): E11.9 - TYPE 2 DIABETES MELLITUS WITHOUT COMPLICATIONS
[2019-05-05] MEDS: ENOXAPARIN SODIUM SQ SCH (10:04)
[2019-05-05] MEDS: Unasyn 3GM / NaCl 100ML 3 GM/100 ML IVPB IV SCH ×2 (10:04→21:03)
[2019-05-05] MEDS: Lantus Insulin SQ SCH ×2 (10:24→21:04)
[2019-05-05] MEDS: Klor Con 10 MEQ PO SCH ×3 (10:36→20:47)
[2019-05-05] MEDS: Flomax 0.4 MG PO SCH (10:36)
[2019-05-05] MEDS: Aricept 10 MG PO SCH (10:36)
[2019-05-05] MEDS: Namenda 5 MG PO SCH ×2 (10:36→20:47)
[2019-05-05] MEDS: Avapro 150 MG PO SCH (10:36)
[2019-05-05] MEDS: hydroDIURIL 25 MG PO SCH (10:36)
[2019-05-05] MEDS: Ecotrin 325 MG PO SCH (10:36)
[2019-05-05] MEDS: SYNTHROID 75 MCG PO SCH (10:36)
[2019-05-06] MEDS: Sodium Chloride 0.9% 10 ML FLUSH Syringe IV SCH (05:05)
[2019-05-06 07:16] VITALS: BP 140/82
[2019-05-06 08:02] VITALS: PULSE 94; O2SAT 97
[2019-05-06] MEDS: Sodium Chloride 0.9% W/ 20 mEq KCl/LITER 1,000 ML IV SCH (08:08)
[2019-05-06] MEDS: Lantus Insulin SQ SCH (08:25)
[2019-05-06] MEDS: Unasyn 3GM / NaCl 100ML 3 GM/100 ML IVPB IV SCH (09:20)
[2019-05-06] MEDS: ENOXAPARIN SODIUM SQ SCH (09:20)
--- NOTE | 2019-05-06 09:36 | PCM.DS ---
Discharge Summary Date of Admission: 05/01/19 15:30 Admitting Physician: JESSI WADDELL Consults: Consults on Case 05/01/19 16:32 Tele-Health Consult ROUTINE Primary Care Provider: JESSI WADDELL Allergies Allergies naproxen [From Naprosyn] Adverse Reaction (Mild, Verified 04/30/19 23:49) red rash, head to toe Hospital Summary - Hospital Course Hospital Course: patient was admitted with altered mental status and weakness, developed a severe CVA after admission. no intervention per teleneuro consult, he is unable to handle secretions and is bedridden, wishes for only comfort measures and patient is SCO. going to [facility] for palliative care, life expectancy is days at this point. - Vitals & Intake/Output Vital Signs: Vital Signs Temperature 98.4 F 05/06/19 07:15 Pulse Rate 94 H 05/06/19 07:59 Respiratory Rate 20 05/06/19 08:00 Blood Pressure 140/82 05/06/19 07:15 O2 Sat by Pulse Oximetry 97 05/06/19 07:59 Oxygen-Last Documented O2 Percentage 50% Intake & Output: Intake & Output 05/03/19 05/04/19 05/05/19 05/06/19 11:59 11:59 11:59 11:59 Intake Total 6559 188 3666 2355 Output Total 400 1300 1250 1900 Balance 720 -506 209 455 Weight 85.4 kg 84 kg 83.6 kg 83 kg - Lab Result Diagrams: 05/05/19 05:22 05/05/19 05:22 Lab Results-Last 24 Hrs: Accuchecks Date 05/06/19 Date 05/05/19 Date 05/05/19 Date 05/05/19 Time 07:30 Time 22:00 Time 16:30 Time 11:30 Accucheck Value: 78 Accucheck Value: 115 Accucheck Value: 153 Accucheck Value: 178 Micro Results-Entire Visit: Microbiology 04/30/19 18:00 Urine Culture - Final Catherized NO GROWTH Accuchecks Date 05/06/19 Date 05/05/19 Date 05/05/19 Date 05/05/19 Time 07:30 Time 22:00 Time 16:30 Time 11:30 Accucheck Value: 78 Accucheck Value: 115 Accucheck Value: 153 Accucheck Value: 178 - Radiology Exams Ordered Rad Exams-Entire Visit: Radiology Procedures Category Date Time Status CHEST 1 VIEW (PORTABLE) Urgent Exams 05/04/19 12:55 Completed - Procedures and Test Procedures and Tests throughout Hospitalization: Therapy Orders & Screens 04/30/19 22:43 PT Eval & Treat ( Order) ROUTINE Reason for Eval:: weakness, strengthening and transfer Diagnosis: weakness 04/30/19 23:42 OT Screen per Nursing Assess ONCE Comment: Protocol Order Physician Instructions: Greater than 3 points order OT Admission Screening Reason For Exam: Triggered on Admission Diagnosis: weakness and confusion Open Wound/Cellutlitis/Pressure Ulcers: No Acute Fx/ORIF/Change in wt bearing status: No Severe MUSCULOSKELETAL pain: No ADL Dysfunction: Yes Acute CVA w/Hemiparesis/Hemiplegia: No Decreased Functional Mobility/Strength: Yes Sprain/Strain: No Acute Post-op Mobility Dysfunction: No Total Points: 4 PT Screen per Nursing Assess ONCE Comment: Protocol Order Physician Instructions: Greater than 3 points order PT Admission Screenin Reason For Exam: Triggered on Admission Diagnosis: weakness and confusion Open Wound/Cellutlitis/Pressure Ulcers: No Acute Fx/ORIF/Change in wt bearing status: No Severe MUSCULOSKELETAL pain: No ADL Dysfunction: Yes Acute CVA w/Hemiparesis/Hemiplegia: No Decreased Functional Mobility/Strength: Yes Sprain/Strain: No Acute Post-op Mobility Dysfunction: No Total Points: 4 05/01/19 08:28 PT Eval & Treat ( Order) ROUTINE Reason for Eval:: weakness, falls Diagnosis: weakness and confusion 05/01/19 17:47 ST Eval & Treat ( Order) .as ordered Comment: Physician Instructions: Reason For Exam: Evaluate: Yes Treat: Yes Reason for Eval: STROKE Diagnosis: weakness and confusion 05/02/19 09:43 Respiratory Therapy Assessment DAILY Comment: Diagnosis: CVA 05/03/19 13:18 OT Eval and Treat ( Order) ROUTINE Comment: Consulting Provider: Physician Instructions: Reason For Exam: Diagnosis: CVA 05/04/19 03:53 Oxygen Oxymask LPM 7% Comment: Diagnosis: CVA Discharge Exam General Appearance: no apparent distress Neurologic Exam: motor deficits, sensory deficit, motor weakness, slurred speech , No 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 Code(s): I63.9 - CEREBRAL INFARCTION, UNSPECIFIED (2) Weakness Current Visit: Yes Status: Resolved Code(s): R53.1 - WEAKNESS (3) Confusion Current Visit: Yes Status: Resolved Code(s): R41.0 - DISORIENTATION, UNSPECIFIED (4) Diabetes mellitus Current Visit: Yes Status: Chronic Code(s): E11.9 - TYPE 2 DIABETES MELLITUS WITHOUT COMPLICATIONS - Discharge Disposition: DC TO [facility] Condition: Poor Prescriptions: New Albuterol/Ipratropium 3ml Neb* [DUONEB 0.5-3 MG/3 ml Neb] 3 ml IH Q4HPRN PRN #100 ampul.neb PRN Reason: Shortness Of Breath/Wheezing Acetaminophen 650 mg [Feverall 650 mg] 650 mg MS Q6H PRN PRN #30 supp.rect PRN Reason: Pain And/Or Fever LORazepam [Lorazepam Intensol] 0.5 ml PO Q4-6HPRN PRN #20 ml PRN Reason: Agitation Morphine Sulfate [Roxanol] 0.5 ml SL Q4-6HPRN PRN #20 ml MDD 3 PRN Reason: Pain Discontinued Memantine HCl 10 mg PO BID Insulin Lispro [Humalog Kwikpen U-100] 45 unit SQ BID Insulin Detemir [Levemir] 60 - 65 unit SQ BID Medroxyprogesterone Acet [Depo-Provera] 150 mg IM UD Vitamin E 1,000 unit PO DAILY Levothyroxine Sodium 75 Mcg [Synthroid 75 Mcg] 75 mcg PO DAILY Irbesartan/Hydrochlorothiazide [Irbesartan-Hctz 150-12.5 mg Tb] 1 each PO DAILY Donepezil HCl 10 mg [Aricept 10 MG] 10 mg PO DAILY Potassium Chloride [K-Dur] 20 meq PO TID Cyanocobalamin (Vitamin B-12) [Vitamin B12] 1,000 mcg PO DAILY Metformin HCl 850 mg [Glucophage 850 MG] 850 mg PO TID Tamsulosin HCl 0.4 mg [Flomax 0.4 MG] 0.4 mg PO DAILY Folic Acid 1 tab PO DAILY
[2019-05-06] MEDS: Aricept 10 MG PO SCH (10:09)
[2019-05-06] MEDS: Avapro 150 MG PO SCH (10:09)
[2019-05-06] MEDS: Namenda 5 MG PO SCH (10:09)
[2019-05-06] MEDS: Klor Con 10 MEQ PO SCH (10:09)
[2019-05-06] MEDS: Flomax 0.4 MG PO SCH (10:09)
[2019-05-06] MEDS: hydroDIURIL 25 MG PO SCH (10:09)
[2019-05-06] MEDS: Ecotrin 325 MG PO SCH (10:09)
[2019-05-06] MEDS: SYNTHROID 75 MCG PO SCH (10:10)
== END 2019-05-06 11:10 | DRG 65 ==
LOC: ED 16:52 → MED SURG 22:35 → OBSVTOIN 05-01 15:30
PROVIDERS: ADMIT Family Medicine; ATTEND Family Medicine
DX: I63.9 Cerebral infarction, unspecified (principal); I69.351 Hemiplegia and hemiparesis following cerebral infarction affecting right dominant side; C64.2 Malignant neoplasm of left kidney, except renal pelvis; R53.1 Weakness; R41.0 Disorientation, unspecified; E11.9 Type 2 diabetes mellitus without complications; G30.9 Alzheimer's disease, unspecified; F02.80 Dementia in other diseases classified elsewhere, unspecified severity, without behavioral disturbance, psychotic disturbance, mood disturbance, and anxiety; I10 Essential (primary) hypertension; E03.9 Hypothyroidism, unspecified; E78.00 Pure hypercholesterolemia, unspecified; Z90.5 Acquired absence of kidney; Z79.899 Other long term (current) drug therapy
CPT/HCPCS: 36415; 70450; 71045; 80053; 80061; 81001; 82150; 82607; 82962; 83036; 83605; 83690; 83721; 84443; 84484; 85025; 87086; 92610; 93268; 94640; 94760; 94762; 96360; 97110; 97161; 97165; 97530; 99284; G0378; Q3014; J0295; J1650; A9270-GY